=== PATIENT | female | born 1980 | race Hispanic/Latino ===

== ENCOUNTER 2021-10-20 17:09 | Inpatient (IN) | payer OTHER ==
[2021-10-20 18:27] LABS: Hematocrit 27.1 % (30.3-42.9); Hemoglobin 9.8 gm/dl (10.1-14.3); Mean Corpuscular HGB Conc 36 % (30-34); Mean Corpuscular Volume 88 fl (79-97); Platelet Count 158 K/mm3 (140-440); Red Blood Count 3.08 M/mm3 (3.65-5.03); Red Cell Distribution Width 14.9 % (13.2-15.2)
[2021-10-20 18:32] LABS: Bacteria,Urine 1+ /HPF (Negative); Bilirubin,Urine NEG (Negative); Blood,Urine NEG (Negative); Color,Urine Yellow (Yellow); Mucus,Urine FEW /HPF; Protein,Urine <15 mg/dL mg/dL (Negative); RBC,Urine < 1.0 /HPF (0.0-6.0); Urobilinogen,Urine < 2.0 mg/dL (<2.0)
[2021-10-20 18:48] LABS: Alanine Aminotransferase 12 units/L (7-56)
[2021-10-20 18:53] LABS: Creatinine,Urine 157.1 mg/dL (0.1-20.0); Protein/Creatinine Ratio,Urine 0.22
[2021-10-20] MEDS ORDERED: LOPERAMIDE 2 MG CAP PO PRN (20:03)
[2021-10-20] MEDS ORDERED: LIDOCAINE (2%) 20 MG/1 ML VIAL 20 ML MDV INFILTRATI ONE (20:03)
[2021-10-20] MEDS ORDERED: miSOPROStol 200 MCG TAB PR PRN (20:03)
[2021-10-20] MEDS ORDERED: TERBUTALINE 1 MG/1 ML INJ SUB-Q PRN (20:03)
[2021-10-20] MEDS ORDERED: ONDANSETRON 4 MG/2 ML INJ IV PRN (20:03)
[2021-10-20] MEDS ORDERED: OXYTOCIN 10 UNIT/1 ML INJ IM PRN (20:03)
[2021-10-20] MEDS ORDERED: NALOXONE 0.4 MG/1 ML INJ IV PRN (20:03)
[2021-10-20] MEDS ORDERED: fentaNYL 100 MCG/2 ML INJ IV PRN (20:03)
[2021-10-20] MEDS ORDERED: CARBOPROST TROMETHAMINE 250 MCG/1 ML INJ IM PRN (20:03)
[2021-10-20] MEDS ORDERED: PROMETHAZINE 25 MG TAB PO PRN (20:03)
[2021-10-20] MEDS ORDERED: ePHEDrine SULFATE 50 MG/1 ML INJ IV PRN (20:03)
[2021-10-20] MEDS ORDERED: ACETAMINOPHEN 325 MG TAB PO PRN (20:03)
[2021-10-20] MEDS ORDERED: MINERAL OIL 30 ML ORAL LIQD PO PRN (20:03)
[2021-10-20] MEDS ORDERED: BUTORPHANOL 2 MG/1 ML INJ IV PRN (20:03)
--- NOTE | 2021-10-20 20:11 | History and Physical Report ---
<ULISSES WELLINGTON - Last Filed: 10/21/21 00:09> History of Present Illness Date of examination: 10/20/21 Date of admission: 10/20/2021 Chief complaint: I was sent from the high risk doctors History of present illness: Pt is a 41 y.o. @ 37.1 wks, presented to triage after being sent from her [facility] appointment for a pre eclampsia evaluation. She has been seeing [facility] d/t AMA and on medications for ADHD. Her blood pressure at her [facility] visit today was 150's/90's. Also, at her [facility] appointment she was noted to have proteiunuria. Pt was to complete a 24 hr urine but did not turn it in as recommended. Initially upon admission to triage she told the RN that she had a CHANDLER, blurred vision, and some shortness of breath. Upon further questioning, she denied all symptoms. Her latest BPP and growth scan completed on 10/20 resulted vertex, CORRIE WNL, 26% (2803g, 6-3). EDC Confirmation: 11/09/2021 Gestational Age: 37.1 weeks on admission Past History : 4 Term Births: 3 Premature Births: 0 Living Children: 3 Para: 3 Mult. Births: 0 Prev : 0 Aborta: 0 Elect. Ab: 0 Spont. Ab: 0 Ectopics: 0 # 1 Delivery date: 1997 Weeks Gestation: 40 labor: no Delivery type: Anesthesia type: epidural Delivery location: [facility] Sex: Male weight: 6lbs 13oz Name: Ezequiel Comments: no complications # 2 Delivery date: 1998 Weeks Gestation: 40 labor: no Delivery type: Anesthesia type: epidural Delivery location: [facility] Infant Sex: Male weight: 7lbs 8oz Name: "Andrews" Comments: no complications # 3 Delivery date: 2002 Weeks Gestation: 40 labor: no Delivery type: Anesthesia type: none Delivery location: [facility] Infant Sex: Male weight: 8lbs 7oz Name: "Genaro" Past Medical History: Reviewed and updated today: Anemia ADHD Carpal tunnel syndrome- surgery scheduled 03/30/2021 Past Surgical History: Reviewed and updated today: negative Family History Summary: Reviewed history Last on 07/02/2020 and no changes required:03/16/2021 General Comments - FH: Family History of CVA or Stroke mother due to anuersym. Risk Factors: Smoked Tobacco Use: Never smoker Smokeless Tobacco Use: Never Passive Smoke Exposure: no HIV High Risk Behavior: no Caffeine Use: 1 drinks per day Exercise: no Exercise Counseling: yes Seatbelt Use: preg-health counselor % Sun Exposure: frequently Family History Risk Factors: Family History of IL in 1 Female Relative Age < 65: no Family History of IL in 1 Male Relative Age < 55: no No Dietary Counseling Reason: pn yes Alcohol Use: no Drug Use: no Past Medical History Anesthesia Complications: negative Anemia: positive Autoimmune Disorder: negative Bleeding Disorder: negative Blood Transfusions: negative Breast Disease: negative Diabetes: negative Heart Disease: negative Hypertension: negative Hepatitis/Liver Disease: negative Kidney Disease/UTI: negative Neurologic/Epilepsy/Migraines: negative Phlebitis/Varicosities: negative Psychiatric: positive Pulmonary Disease/Asthma: negative Thyroid Disease: negative Hospitalizations: negative Surgery (Non-art installer): negative Abnormal PAP: negative SKIP Exposure: negative Infertility: negative Uterine Anomaly: negative Uterine Surgery (not C/S): negative Other Gynecologic Problems: negative Social Hx: Patient is single logistic Infection History Hx of STD: none HIV Risk Eval: no Hepatitis B Risk Eval: low risk Personal hx. of genital herpes: yes Rash, Viral, or Febrile illness since last LMP? no Varicella/Chicken Pox Status: Previous Disease TB Risk: no Genetic History ADVANCED MATERNAL AGE Congenital Heart Defect: Mom: no Dad: no Liza Disease: Mom: no Dad: no Thalassemia Mom: no Dad: no Neural Tube Defect Mom: no Dad: no Down's Syndrome Mom: no Dad: no Masoud-Sachs Mom: no Dad: no Sickle Cell Disease/Trait Mom: no Dad: no Hemophilia Mom: no Dad: no Muscular Dystrophy Mom: no Dad: no Cystic Fibrosis Mom: no Dad: no Thee Chorea Mom: no Dad: no Mental Retardation Mom: no Dad: no Fragile X Mom: no Dad: no Other Genetic/Chromosomal Disorder Mom: no Dad: no Child w/other defect Mom: no Dad: no Enviromental Exposures Enviromental Exposures Reviewed Xray Exposure: no Medication, drug, or alcohol use since LMP: no Chemical/Other Exposure: no Exposure to Cat Liter: yes Hx of Parvovirus (Fifth Disease): no Occupational Exposure to Children: none Current Allergies (reviewed today): No known allergies Past History Past Medical History: hematologic disorders (Anemia), other (ADHA) Past Surgical History: other (Carpal tunnel surgery 2020) Family/Genetic History: hypertension, stroke Social history: no significant social history - Obstetrical History Expected Date of Delivery: 11/09/21 Actual Gestation: 37 Week(s) 2 Day(s) : 4 Para: 3 Hx # Term Pregnancies: 3 Number of Pregnancies: 0 Spontaneous Abortions: 0 Induced : 0 Number of Living Children: 3 Medications and Allergies Allergies Allergy/AdvReac Type Severity Reaction Status Date / Time No Known Allergies Allergy Verified 10/20/21 17:53 Active Meds: Active Medications Ephedrine Sulfate (Ephedrine Sulfate 50 Mg/1 Ml Inj) 10 mg IV Q2M PRN PRN Reason: Hypotension Lactated Ringer's (Lactated Ringers) 1,000 mls @ 125 mls/hr IV DIRECT ADALID Oxytocin/Sodium Chloride (Pitocin/Ns 30 Unit/500ml) 30 units in 500 mls @ 40 mls/hr IV TITR ADALID; Protocol Lidocaine (Lidocaine (2%) 20 Mg/1 Ml Vial 20 Ml Mdv) 20 ml INFILTRATI ONCE ONE Stop: 10/20/21 20:04 Mineral Oil (Mineral Oil 30 Ml Oral Liqd) 30 ml PO QHS PRN PRN Reason: Constipation Terbutaline Sulfate (Terbutaline 1 Mg/1 Ml Inj) 0.25 mg SUB-Q ONCE PRN PRN Reason: Hyperstimulation/Hypertonicity Review of Systems All systems: negative - Vital Signs Vital signs: Vital Signs Pulse Pulse Ox 71 96 10/20/21 17:51 10/20/21 17:51 Temp Pulse Resp BP Pulse Ox 98.2 F 71 20 138/87 97 10/20/21 17:52 10/20/21 19:45 10/20/21 17:52 10/20/21 19:45 10/20/21 18:11 Pt denies CHANDLER, blurred vision, spots before her eye, chest pain, shortness of breath, and upper abdominal pain. - Physical Exam Breasts: Positive: deferred Cardiovascular: Regular rate Lungs: Positive: Normal air movement Abdomen: Positive: normal appearance, soft Extremities: Positive: edema (Trace edema) Deep Tendon Reflex Grade: Normal +2 - Obstetrical FHR: category 1 Uterine Contraction Monitor Mode: External Uterine Contraction Pattern: Absent Results Result Diagrams: 10/20/21 Unknown 10/20/21 Unknown Abnormal lab results 10/20/21 10/20/21 Range/Units Unknown Unknown RBC 3.08 L (3.65-5.03) M/mm3 Hgb 9.8 L (10.1-14.3) gm/dl Hct 27.1 L (30.3-42.9) % MCHC 36 H (30-34) % Urine Creatinine 157.1 H (0.1-20.0) mg/dL Urine Total Protein 34 H (5-11.8) mg/dL All other labs normal. GBS NEGATIVE HBsAg Screen Negative Negative *1 RPR Non Reactive Non Reactive *2 Rubella Antibodies, IgG 4.52 index Immune >0.99 *3 Non-immune <0.90 Equivocal 0.90 - 0.99 Immune >0.99 ABO Grouping O *4 Rh Factor Positive *5 Please note: Prior records for this patient's ABO / Rh type are not available for additional verification. Antibody Screen Negative Negative *6 Tests: (2) HB Solu + Rflx [facility] ([id number]) Hemoglobin (Hgb) Solubility Negative Negative *31 Tests: (3) HIV Ag/Ab with Reflex ([id number]) HIV Screen 4th Generation wRfx Non Reactive Non Reactive *32 Tests: (4) HCV Antibody reflex to [facility] ([id number]) HCV Ab 0.3 s/co ratio 0.0-0.9 *33 Tests: (5) Interpretation: ([id number]) ! Interpretation: SPRCS *34 Negative Not infected with HCV, unless recent infection is suspected or other evidence exists to indicate HCV infection. Assessment and Plan A: 41 y.o. @ 37.1 wks, elevated blood pressures, anemia, ADHD, HSV2. - Patient Problems (1) 37 or more weeks gestation of Current Visit: Yes Status: Acute Plan to address problem: Monitor status through EFM. (2) Elevated blood pressure affecting , antepartum Current Visit: Yes Status: Acute Plan to address problem: Consulted with Dr. Rizvi. Admit to labor and delivery. Initiate IV. Draw admission and pre eclampsia labs. Initiate 24 hour urine. Continue to monitor blood pressures. Monitor for s/sx of pre eclampsia. (3) Hx of herpes genitalis Current Visit: Yes Status: Acute Plan to address problem: Valtrex ordered. (4) Anemia affecting in third trimester Current Visit: Yes Status: Acute Plan to address problem: with iron ordered. (5) History of ADHD Current Visit: Yes Status: Acute Plan to address problem: Will order psych this admission if needed. <GARRETT RIZVI - Last Filed: 10/22/21 10:38> History of Present Illness Date of admission: 10/20/21 20:04 Medications and Allergies Active Meds: Active Medications Acetaminophen (Acetaminophen 325 Mg Tab) 1,000 mg PO Q6H PRN PRN Reason: Pain, Mild (1-3) Butorphanol Tartrate (Butorphanol 2 Mg/1 Ml Inj) 1 mg IV Q2H PRN PRN Reason: Pain, Moderate(4-6) LABOR PAIN Carboprost Tromethamine (Carboprost Tromethamine 250 Mcg/1 Ml Inj) 250 mcg IM ONCE PRN PRN Reason: Uterine Bleeding Diphenhydramine HCl (Diphenhydramine 50 Mg Cap) 50 mg PO HS PRN PRN Reason: Sleep Last Admin: 10/21/21 22:28 Dose: 50 mg Ephedrine Sulfate (Ephedrine Sulfate 50 Mg/1 Ml Inj) 10 mg IV Q2M PRN PRN Reason: Hypotension Fentanyl (Fentanyl 100 Mcg/2 Ml Inj) 100 mcg IV Q2H PRN PRN Reason: Pain,Severe (7-10) LABOR PAIN Lactated Ringer's (Lactated Ringers) 1,000 mls @ 125 mls/hr IV DIRECT ADALID Last Admin: 10/22/21 10:30 Dose: 125 mls/hr Oxytocin/Sodium Chloride (Pitocin/Ns 30 Unit/500ml) 30 units in 500 mls @ 40 mls/hr IV TITR ADALID; Protocol Oxytocin/Sodium Chloride (Pitocin/Ns 30 Unit/500ml) 30,000 milliunits in 500 mls @ 1 mls/hr IV DIRECT ONE; Protocol Stop: 11/12/21 05:59 Last Admin: 10/22/21 10:35 Dose: 1 milliunits/min, 1 mls/hr Loperamide HCl (Loperamide 2 Mg Cap) 2 mg PO ONCE PRN PRN Reason: give with Hemabate Mineral Oil (Mineral Oil 30 Ml Oral Liqd) 30 ml PO QHS PRN PRN Reason: Constipation Misoprostol (Misoprostol 200 Mcg Tab) 800 mcg DC ONCE PRN PRN Reason: Uterine Bleeding Multivitamins/Iron/Calcium ( [id number] Fumarate-Folic Acid Vit Tab) 1 each PO QDAY [facility] Last Admin: 10/22/21 10:31 Dose: 1 each Naloxone HCl (Naloxone 0.4 Mg/1 Ml Inj) 0.1 mg IV Q2MIN PRN PRN Reason: Res Rate </= 8 or 02 SAT < 92% Ondansetron HCl (Ondansetron 4 Mg/2 Ml Inj) 4 mg IV Q8H PRN PRN Reason: Nausea And Vomiting Oxytocin (Oxytocin 10 Unit/1 Ml Inj) 10 unit IM ONCE PRN PRN Reason: Uterine Bleeding Promethazine HCl (Promethazine 25 Mg Tab) 25 mg PO Q6H PRN PRN Reason: Nausea And Vomiting Terbutaline Sulfate (Terbutaline 1 Mg/1 Ml Inj) 0.25 mg SUB-Q ONCE PRN PRN Reason: Hyperstimulation/Hypertonicity Valacyclovir HCl (Valacyclovir 500 Mg Tab) 1,000 mg PO QDAY [facility] Last Admin: 10/22/21 10:31 Dose: 1,000 mg - Vital Signs Vital signs: Vital Signs Pulse Pulse Ox 71 96 10/20/21 17:51 10/20/21 17:51 Temp Pulse Resp BP Pulse Ox 98.1 F 82 18 140/83 98 10/22/21 08:00 10/22/21 10:34 10/21/21 22:58 10/22/21 10:21 10/22/21 10:34 Results Result Diagrams: 10/20/21 Unknown 10/20/21 Unknown Abnormal lab results 10/20/21 Range/Units 21:17 Ur Total Protein 24 Hr 306.00 H (2-200) mg/dL Urine Total Protein 17 H (5-11.8) mg/dL All other labs normal.
[2021-10-20] MEDS ORDERED: LACTATED RINGERS 1,000 ML IV SCH (20:15)
[2021-10-20] MEDS ORDERED: OXYTOCIN DRIP 30 UNITS/500 ML BAG IV SCH (21:00)
[2021-10-20] MEDS: diphenhydrAMINE 50 MG CAP PO PRN (22:33)
[2021-10-20 22:55] LABS: Blood Urea Nitrogen 7 mg/dL (7-17); Calcium 8.8 mg/dL (8.4-10.2); Hemolysis Index 1
[2021-10-20 22:57] LABS: BUN/Creatinine Ratio 14
[2021-10-21] MEDS ORDERED: POTASSIUM CHLORIDE ER 20 MEQ TAB PO ONE (00:14)
--- NOTE | 2021-10-21 12:26 | Progress Note ---
Assessment and Plan Pt BP 162/87 while this CNM at bedside. Pt sitting in bed eating lunch and denies all complaints. BP retake 142/91. POC d/w pt. Questions encouraged and addressed. Discussed plan to continue monitoring BP and collecting 24hr urine. IOL discussed to start today if pt has severe range BP needing antihypertensive treatment. Pt verbalizes understanding and agrees to POC. Kristy PENA notified of CNM discussion with the pt and pt BP. POC discussed. RN requested to notify provider if any changes in ssx or increases in BP. RN agrees to POC. Dr Adam made aware. - Patient Problems (1) 37 or more weeks gestation of Current Visit: Yes Status: Acute (2) Elevated blood pressure affecting , antepartum Current Visit: Yes Status: Acute Plan to address problem: Continue 24 hour urine. Continue to monitor blood pressures. Monitor for s/sx of pre eclampsia. Notify provider with any elevated BPs or changes in pt status Subjective - Subjective Date of service: 10/21/21 Principal diagnosis: IUP@ 37.2wks, elevated blood pressure in , 24hr urine in progress Patient reports: movement normal, other (pt denies having any complaints), no new complaints, no loss of fluid, no vaginal bleeding, no contractions Objective - Vital Signs Vital Signs: Vital Signs - 12hr 10/21/21 10/21/21 10/21/21 00:30 00:31 00:35 Temperature Pulse Rate 70 99 H 70 Respiratory Rate Blood Pressure O2 Sat by Pulse 92 90 90 Oximetry O2 Sat by Pulse Oximetry [ Bilateral Throughout] 10/21/21 10/21/21 10/21/21 00:36 00:40 00:41 Temperature Pulse Rate 78 72 74 Respiratory Rate Blood Pressure O2 Sat by Pulse 92 96 93 Oximetry O2 Sat by Pulse Oximetry [ Bilateral Throughout] 10/21/21 10/21/21 10/21/21 00:45 00:46 00:50 Temperature Pulse Rate 69 87 79 Respiratory Rate Blood Pressure O2 Sat by Pulse 95 90 89 Oximetry O2 Sat by Pulse Oximetry [ Bilateral Throughout] 10/21/21 10/21/21 10/21/21 00:52 00:55 00:57 Temperature Pulse Rate 84 78 89 Respiratory Rate Blood Pressure O2 Sat by Pulse 92 91 92 Oximetry O2 Sat by Pulse Oximetry [ Bilateral Throughout] 10/21/21 10/21/2110/21/22 01:00 01:02 01:05 Temperature Pulse Rate 68 77 74 Respiratory Rate Blood Pressure O2 Sat by Pulse 90 91 99 Oximetry O2 Sat by Pulse Oximetry [ Bilateral Throughout] 10/21/21 10/21/21 10/21/21 01:13 01:18 01:22 Temperature Pulse Rate 73 69 62 Respiratory Rate Blood Pressure 136/78 O2 Sat by Pulse 99 95 Oximetry O2 Sat by Pulse Oximetry [ Bilateral Throughout] 10/21/21 10/21/21 10/21/21 01:23 01:28 01:32 Temperature Pulse Rate 65 66 75 Respiratory Rate Blood Pressure O2 Sat by Pulse 95 97 91 Oximetry O2 Sat by Pulse Oximetry [ Bilateral Throughout] 10/21/21 10/21/21 10/21/21 01:33 01:37 01:38 Temperature Pulse Rate 60 84 63 Respiratory Rate Blood Pressure O2 Sat by Pulse 86 89 96 Oximetry O2 Sat by Pulse Oximetry [ Bilateral Throughout] 10/21/21 10/21/21 10/21/21 01:42 01:43 01:48 Temperature Pulse Rate 86 64 65 Respiratory Rate Blood Pressure O2 Sat by Pulse 90 97 87 Oximetry O2 Sat by Pulse Oximetry [ Bilateral Throughout] 10/21/21 10/21/21 10/21/21 01:53 01:58 01:59 Temperature Pulse Rate 89 68 69 Respiratory Rate Blood Pressure O2 Sat by Pulse 83 L 92 87 Oximetry O2 Sat by Pulse Oximetry [ Bilateral Throughout] 10/21/21 10/21/21 10/21/21 02:03 02:04 02:08 Temperature Pulse Rate 66 66 69 Respiratory Rate Blood Pressure O2 Sat by Pulse 97 89 71 L Oximetry O2 Sat by Pulse Oximetry [ Bilateral Throughout] 10/21/21 10/21/21 10/21/21 02:09 02:13 02:14 Temperature Pulse Rate 83 71 71 Respiratory Rate Blood Pressure O2 Sat by Pulse 87 92 92 Oximetry O2 Sat by Pulse Oximetry [ Bilateral Throughout] 10/21/21 10/21/21 10/21/21 02:18 02:19 02:21 Temperature Pulse Rate 75 76 78 Respiratory Rate Blood Pressure 136/78 O2 Sat by Pulse 93 89 Oximetry O2 Sat by Pulse Oximetry [ Bilateral Throughout] 10/21/21 10/21/21 10/21/21 02:23 02:25 02:28 Temperature Pulse Rate 74 76 79 Respiratory Rate Blood Pressure O2 Sat by Pulse 89 88 90 Oximetry O2 Sat by Pulse Oximetry [ Bilateral Throughout] 10/21/21 10/21/21 10/21/21 02:30 02:33 02:35 Temperature Pulse Rate 74 61 75 Respiratory Rate Blood Pressure O2 Sat by Pulse 89 87 90 Oximetry O2 Sat by Pulse Oximetry [ Bilateral Throughout] 10/21/21 10/21/21 10/21/21 02:38 02:40 02:43 Temperature Pulse Rate 61 76 72 Respiratory Rate Blood Pressure O2 Sat by Pulse 98 89 84 Oximetry O2 Sat by Pulse Oximetry [ Bilateral Throughout] 10/21/21 10/21/21 10/21/21 02:46 02:48 02:51 Temperature Pulse Rate 75 74 69 Respiratory Rate Blood Pressure O2 Sat by Pulse 89 87 90 Oximetry O2 Sat by Pulse Oximetry [ Bilateral Throughout] 10/21/21 10/21/21 10/21/21 02:54 02:56 02:59 Temperature Pulse Rate 66 78 78 Respiratory Rate Blood Pressure O2 Sat by Pulse 95 87 89 Oximetry O2 Sat by Pulse Oximetry [ Bilateral Throughout] 10/21/21 10/21/21 10/21/21 03:02 03:04 03:07 Temperature Pulse Rate 78 72 72 Respiratory Rate Blood Pressure O2 Sat by Pulse 90 96 90 Oximetry O2 Sat by Pulse Oximetry [ Bilateral Throughout] 10/21/21 10/21/21 10/21/21 03:09 03:12 03:14 Temperature Pulse Rate 66 81 69 Respiratory Rate Blood Pressure O2 Sat by Pulse 96 89 96 Oximetry O2 Sat by Pulse Oximetry [ Bilateral Throughout] 10/21/21 10/21/21 10/21/21 03:18 03:19 03:22 Temperature Pulse Rate 80 63 73 Respiratory Rate Blood Pressure 141/86 O2 Sat by Pulse 90 87 Oximetry O2 Sat by Pulse Oximetry [ Bilateral Throughout] 10/21/21 10/21/21 10/21/21 03:23 03:24 03:29 Temperature Pulse Rate 80 65 70 Respiratory Rate Blood Pressure O2 Sat by Pulse 91 97 84 Oximetry O2 Sat by Pulse Oximetry [ Bilateral Throughout] 10/21/21 10/21/21 10/21/21 03:34 03:39 03:40 Temperature Pulse Rate 64 68 72 Respiratory Rate Blood Pressure O2 Sat by Pulse 98 97 93 Oximetry O2 Sat by Pulse Oximetry [ Bilateral Throughout] 10/21/21 10/21/21 10/21/21 03:44 03:45 03:49 Temperature Pulse Rate 64 78 78 Respiratory Rate Blood Pressure O2 Sat by Pulse 94 90 90 Oximetry O2 Sat by Pulse Oximetry [ Bilateral Throughout] 10/21/21 10/21/21 10/21/21 03:51 03:54 03:56 Temperature Pulse Rate 73 72 81 Respiratory Rate Blood Pressure O2 Sat by Pulse 89 86 89 Oximetry O2 Sat by Pulse Oximetry [ Bilateral Throughout] 10/21/21 10/21/21 10/21/21 03:59 04:01 04:04 Temperature Pulse Rate 76 79 78 Respiratory Rate Blood Pressure O2 Sat by Pulse 92 89 96 Oximetry O2 Sat by Pulse Oximetry [ Bilateral Throughout] 10/21/21 10/21/21 10/21/21 04:07 04:09 04:13 Temperature Pulse Rate 74 71 82 Respiratory Rate Blood Pressure O2 Sat by Pulse 94 96 92 Oximetry O2 Sat by Pulse Oximetry [ Bilateral Throughout] 10/21/21 10/21/21 10/21/21 04:14 04:19 04:21 Temperature Pulse Rate 70 69 68 Respiratory Rate Blood Pressure 124/75 O2 Sat by Pulse 95 98 Oximetry O2 Sat by Pulse Oximetry [ Bilateral Throughout] 10/21/21 10/21/21 10/21/21 04:23 04:24 04:29 Temperature Pulse Rate 71 75 78 Respiratory Rate Blood Pressure O2 Sat by Pulse 94 94 97 Oximetry O2 Sat by Pulse Oximetry [ Bilateral Throughout] 10/21/21 10/21/21 10/21/21 04:34 04:35 04:39 Temperature Pulse Rate 77 77 69 Respiratory Rate Blood Pressure O2 Sat by Pulse 95 94 95 Oximetry O2 Sat by Pulse Oximetry [ Bilateral Throughout] 10/21/21 10/21/21 10/21/21 04:41 04:44 04:46 Temperature Pulse Rate 77 69 74 Respiratory Rate Blood Pressure O2 Sat by Pulse 94 95 94 Oximetry O2 Sat by Pulse Oximetry [ Bilateral Throughout] 10/21/21 10/21/21 10/21/21 04:49 04:54 04:55 Temperature Pulse Rate 74 78 76 Respiratory Rate Blood Pressure O2 Sat by Pulse 94 97 94 Oximetry O2 Sat by Pulse Oximetry [ Bilateral Throughout] 10/21/21 10/21/21 10/21/21 04:59 05:04 05:09 Temperature Pulse Rate 69 70 69 Respiratory Rate Blood Pressure O2 Sat by Pulse 97 96 96 Oximetry O2 Sat by Pulse Oximetry [ Bilateral Throughout] 10/21/21 10/21/21 10/21/21 05:14 05:16 05:19 Temperature Pulse Rate 71 68 71 Respiratory Rate Blood Pressure O2 Sat by Pulse 96 93 97 Oximetry O2 Sat by Pulse Oximetry [ Bilateral Throughout] 10/21/21 10/21/21 10/21/21 05:21 05:24 05:28 Temperature Pulse Rate 73 69 70 Respiratory Rate Blood Pressure 140/68 O2 Sat by Pulse 95 93 Oximetry O2 Sat by Pulse Oximetry [ Bilateral Throughout] 10/21/21 10/21/21 10/21/21 05:29 05:33 05:34 Temperature Pulse Rate 60 69 69 Respiratory Rate Blood Pressure O2 Sat by Pulse 95 93 97 Oximetry O2 Sat by Pulse Oximetry [ Bilateral Throughout] 10/21/21 10/21/21 10/21/21 05:38 05:39 05:43 Temperature Pulse Rate 61 64 67 Respiratory Rate Blood Pressure O2 Sat by Pulse 93 97 93 Oximetry O2 Sat by Pulse Oximetry [ Bilateral Throughout] 10/21/21 10/21/21 10/21/21 05:44 05:49 05:54 Temperature Pulse Rate 60 67 64 Respiratory Rate Blood Pressure O2 Sat by Pulse 95 96 96 Oximetry O2 Sat by Pulse Oximetry [ Bilateral Throughout] 10/21/21 10/21/21 10/21/21 05:59 06:04 06:09 Temperature Pulse Rate 68 74 67 Respiratory Rate Blood Pressure O2 Sat by Pulse 96 94 93 Oximetry O2 Sat by Pulse Oximetry [ Bilateral Throughout] 10/21/21 10/21/21 10/21/21 06:14 06:19 06:22 Temperature Pulse Rate 66 74 70 Respiratory Rate Blood Pressure 127/62 O2 Sat by Pulse 96 94 Oximetry O2 Sat by Pulse Oximetry [ Bilateral Throughout] 10/21/21 10/21/21 10/21/21 06:24 06:26 06:29 Temperature Pulse Rate 68 68 66 Respiratory Rate Blood Pressure O2 Sat by Pulse 93 92 97 Oximetry O2 Sat by Pulse Oximetry [ Bilateral Throughout] 10/21/21 10/21/21 10/21/21 06:32 06:34 06:37 Temperature Pulse Rate 67 74 71 Respiratory Rate Blood Pressure O2 Sat by Pulse 94 93 93 Oximetry O2 Sat by Pulse Oximetry [ Bilateral Throughout] 10/21/21 10/21/21 10/21/21 06:39 06:44 06:56 Temperature Pulse Rate 69 76 77 Respiratory Rate Blood Pressure O2 Sat by Pulse 97 97 97 Oximetry O2 Sat by Pulse Oximetry [ Bilateral Throughout] 10/21/21 10/21/21 10/21/21 07:01 07:06 07:11 Temperature Pulse Rate 75 68 69 Respiratory Rate Blood Pressure O2 Sat by Pulse 97 97 98 Oximetry O2 Sat by Pulse Oximetry [ Bilateral Throughout] 10/21/21 10/21/21 10/21/21 07:16 07:21 07:26 Temperature Pulse Rate 76 77 67 Respiratory Rate Blood Pressure 139/82 O2 Sat by Pulse 98 98 99 Oximetry O2 Sat by Pulse Oximetry [ Bilateral Throughout] 10/21/21 10/21/21 10/21/21 07:31 07:36 07:41 Temperature Pulse Rate 94 H 90 79 Respiratory Rate Blood Pressure O2 Sat by Pulse 97 99 99 Oximetry O2 Sat by Pulse Oximetry [ Bilateral Throughout] 10/21/21 10/21/21 10/21/21 07:46 07:51 07:56 Temperature Pulse Rate 69 71 73 Respiratory Rate Blood Pressure O2 Sat by Pulse 98 98 97 Oximetry O2 Sat by Pulse Oximetry [ Bilateral Throughout] 10/21/21 10/21/21 10/21/21 08:01 08:05 08:06 Temperature 98.7 F Pulse Rate 72 82 Respiratory 18 Rate Blood Pressure O2 Sat by Pulse 97 93 Oximetry O2 Sat by Pulse 98 Oximetry [ Bilateral Throughout] 10/21/21 10/21/21 10/21/21 08:11 08:16 08:21 Temperature Pulse Rate 76 77 73 Respiratory Rate Blood Pressure 126/76 O2 Sat by Pulse 98 98 97 Oximetry O2 Sat by Pulse Oximetry [ Bilateral Throughout] 10/21/21 10/21/21 10/21/21 08:26 08:31 08:36 Temperature Pulse Rate 74 74 75 Respiratory Rate Blood Pressure O2 Sat by Pulse 96 97 97 Oximetry O2 Sat by Pulse Oximetry [ Bilateral Throughout] 10/21/21 10/21/21 10/21/21 08:41 08:46 08:47 Temperature Pulse Rate 79 88 77 Respiratory Rate Blood Pressure O2 Sat by Pulse 97 98 94 Oximetry O2 Sat by Pulse Oximetry [ Bilateral Throughout] 10/21/21 10/21/21 10/21/21 08:51 08:56 09:01 Temperature Pulse Rate 79 76 75 Respiratory Rate Blood Pressure O2 Sat by Pulse 97 96 95 Oximetry O2 Sat by Pulse Oximetry [ Bilateral Throughout] 10/21/21 10/21/21 10/21/21 09:06 09:07 09:11 Temperature Pulse Rate 75 76 89 Respiratory Rate Blood Pressure O2 Sat by Pulse 97 93 87 Oximetry O2 Sat by Pulse Oximetry [ Bilateral Throughout] 10/21/21 10/21/21 10/21/21 09:12 09:16 09:18 Temperature Pulse Rate 81 80 79 Respiratory Rate Blood Pressure O2 Sat by Pulse 90 93 89 Oximetry O2 Sat by Pulse Oximetry [ Bilateral Throughout] 10/21/21 10/21/21 10/21/21 09:21 09:23 09:26 Temperature Pulse Rate 76 77 74 Respiratory Rate Blood Pressure 138/77 O2 Sat by Pulse 92 92 96 Oximetry O2 Sat by Pulse Oximetry [ Bilateral Throughout] 10/21/21 10/21/21 10/21/21 09:29 09:31 09:36 Temperature Pulse Rate 77 75 77 Respiratory Rate Blood Pressure O2 Sat by Pulse 92 97 94 Oximetry O2 Sat by Pulse Oximetry [ Bilateral Throughout] 10/21/21 10/21/21 10/21/21 09:51 09:54 09:56 Temperature Pulse Rate 85 88 82 Respiratory Rate Blood Pressure O2 Sat by Pulse 99 94 97 Oximetry O2 Sat by Pulse Oximetry [ Bilateral Throughout] 10/21/21 10/21/21 10/21/21 10:01 10:06 10:09 Temperature Pulse Rate 79 83 78 Respiratory Rate Blood Pressure O2 Sat by Pulse 96 95 94 Oximetry O2 Sat by Pulse Oximetry [ Bilateral Throughout] 10/21/21 10/21/21 10/21/21 10:11 10:16 10:19 Temperature Pulse Rate 77 78 77 Respiratory Rate Blood Pressure O2 Sat by Pulse 96 97 94 Oximetry O2 Sat by Pulse Oximetry [ Bilateral Throughout] 10/21/21 10/21/21 10/21/21 10:21 10:26 10:29 Temperature Pulse Rate 85 78 78 Respiratory Rate Blood Pressure 122/75 O2 Sat by Pulse 95 96 94 Oximetry O2 Sat by Pulse Oximetry [ Bilateral Throughout] 10/21/21 10/21/2122 10:31 10:36 10:41 Temperature Pulse Rate 77 70 83 Respiratory Rate Blood Pressure O2 Sat by Pulse 96 97 96 Oximetry O2 Sat by Pulse Oximetry [ Bilateral Throughout] 10/21/21 10/21/21 10/21/21 10:46 10:51 11:02 Temperature Pulse Rate 74 80 79 Respiratory Rate Blood Pressure O2 Sat by Pulse 98 97 98 Oximetry O2 Sat by Pulse Oximetry [ Bilateral Throughout] 10/21/21 10/21/21 10/21/21 11:07 11:12 11:17 Temperature Pulse Rate 77 77 78 Respiratory Rate Blood Pressure O2 Sat by Pulse 98 98 98 Oximetry O2 Sat by Pulse Oximetry [ Bilateral Throughout] 10/21/21 10/21/21 10/21/21 11:22 11:23 11:27 Temperature Pulse Rate 82 78 79 Respiratory Rate Blood Pressure 166/103 O2 Sat by Pulse 98 98 Oximetry O2 Sat by Pulse Oximetry [ Bilateral Throughout] 10/21/21 10/21/21 10/21/21 11:32 11:37 11:42 Temperature Pulse Rate 89 90 83 Respiratory Rate Blood Pressure O2 Sat by Pulse 98 98 99 Oximetry O2 Sat by Pulse Oximetry [ Bilateral Throughout] 10/21/21 10/21/21 10/21/21 11:47 11:49 11:52 Temperature Pulse Rate 87 76 81 Respiratory Rate Blood Pressure 162/87 149/91 O2 Sat by Pulse 97 97 Oximetry O2 Sat by Pulse Oximetry [ Bilateral Throughout] 10/21/21 10/21/21 10/21/21 11:57 12:05 12:10 Temperature Pulse Rate 90 76 78 Respiratory Rate Blood Pressure O2 Sat by Pulse 98 100 99 Oximetry O2 Sat by Pulse Oximetry [ Bilateral Throughout] 10/21/21 10/21/21 10/21/21 12:15 12:20 12:21 Temperature Pulse Rate 83 71 74 Respiratory Rate Blood Pressure 131/84 O2 Sat by Pulse 98 97 Oximetry O2 Sat by Pulse Oximetry [ Bilateral Throughout] - Exam Breasts: deferred Cardiovascular: Regular rate Lungs: Normal air movement Abdomen: Present: normal appearance, soft. Absent: distention, tenderness, guarding Uterus: Present: normal, other (gravid at term) FHR: auscultation normal, category 1 Uterine Contraction Monitor Mode: External Uterine Contraction Pattern: Irregular Uterine Tone Measurement Phase: Resting Extremities: normal - Labs Labs: Abnormal Labs 10/20/21 10/20/21 10/20/21 22:23 Unknown Unknown RBC 3.08 L Hgb 9.8 L Hct 27.1 L MCHC 36 H Potassium 3.1 L Creatinine 0.5 L Urine Creatinine 157.1 H Urine Total Protein 34 H Laboratory Results - last 24 hr 10/20/21 10/20/21 10/20/21 20:20 20:20 22:23 WBC RBC Hgb Hct MCV MCH MCHC RDW Plt Count Sodium 139 Potassium 3.1 L Chloride 103.6 Carbon Dioxide 25 Anion Gap 14 BUN 7 Creatinine 0.5 L Estimated GFR > 60 BUN/Creatinine Ratio 14 Glucose 91 Uric Acid Calcium 8.8 AST ALT Lactate Dehydrogenase Urine Color Urine Turbidity Urine pH Ur Specific [place] Urine Protein Urine Glucose (UA) Urine Ketones Urine Blood Urine Nitrite Urine Bilirubin Urine Urobilinogen Ur Leukocyte Esterase Urine WBC (Auto) Urine RBC (Auto) U Epithel Cells (Auto) Urine Bacteria (Auto) Urine Mucus Urine Creatinine Protein/Creatinin Ratio Urine Total Protein Syphilis IgG/IgM Ab Nonreactive SARS-CoV-2 (PCR) Blood Type O POSITIVE Antibody Screen Negative 10/20/21 10/20/21 10/20/21 Unknown Unknown Unknown WBC 8.4 RBC 3.08 L Hgb 9.8 L Hct 27.1 L MCV 88 MCH 32 MCHC 36 H RDW 14.9 Plt Count 158 Sodium Potassium Chloride Carbon Dioxide Anion Gap BUN Creatinine 0.6 Estimated GFR > 60 BUN/Creatinine Ratio Glucose Uric Acid 4.0 Calcium AST 15 ALT 12 Lactate Dehydrogenase 172 Urine Color Yellow Urine Turbidity Clear Urine pH 7.0 Ur Specific [place] 1.015 Urine Protein <15 mg/dl Urine Glucose (UA) Neg Urine Ketones Neg Urine Blood Neg Urine Nitrite Neg Urine Bilirubin Neg Urine Urobilinogen < 2.0 Ur Leukocyte Esterase Neg Urine WBC (Auto) 3.0 Urine RBC (Auto) < 1.0 U Epithel Cells (Auto) 6.0 Urine Bacteria (Auto) 1+ Urine Mucus Few Urine Creatinine Protein/Creatinin Ratio Urine Total Protein Syphilis IgG/IgM Ab SARS-CoV-2 (PCR) Blood Type Antibody Screen 10/20/21 10/21/21 Unknown 09:32 WBC RBC Hgb Hct MCV MCH MCHC RDW Plt Count Sodium Potassium Chloride Carbon Dioxide Anion Gap BUN Creatinine Estimated GFR BUN/Creatinine Ratio Glucose Uric Acid Calcium AST ALT Lactate Dehydrogenase Urine Color Urine Turbidity Urine pH Ur Specific [place] Urine Protein Urine Glucose (UA) Urine Ketones Urine Blood Urine Nitrite Urine Bilirubin Urine Urobilinogen Ur Leukocyte Esterase Urine WBC (Auto) Urine RBC (Auto) U Epithel Cells (Auto) Urine Bacteria (Auto) Urine Mucus Urine Creatinine 157.1 H Protein/Creatinin Ratio 0.22 Urine Total Protein 34 H Syphilis IgG/IgM Ab SARS-CoV-2 (PCR) Negative Blood Type Antibody Screen
[2021-10-21] MEDS: diphenhydrAMINE 50 MG CAP PO PRN (22:28)
--- NOTE | 2021-10-22 09:17 | Progress Note ---
Assessment and Plan Pt denies having any complaints. Lab results d/w pt. Risks in with preeclampsia discussed, including but not limited to seizure, stroke, heart attack, and . POC d/w pt. Seriol IOL options reviewed. Pt told induction may take days. Questions encouraged and addressed. Precautions reviewed. Plan discussed to start Magnesium Sulfate if pt has severe range BP needing antihypertensive treatment. Pt verbalizes understanding and agrees to POC. Susanne PENA at bedside for discussion and exam. RN agrees to POC. Pitocin to start now. Dr Jackson made aware. - Patient Problems (1) 37 or more weeks gestation of Current Visit: Yes Status: Acute (2) Elevated blood pressure affecting , antepartum Current Visit: Yes Status: Acute Plan to address problem: Continue to monitor blood pressures. Monitor for s/sx of worsening pre eclampsia. Notify provider with any elevated BPs or changes in pt status Subjective - Subjective Date of service: 10/22/21 Principal diagnosis: IUP@ 37.3wks, Preeclampsia Patient reports: movement normal, other (pt denies having any complaints), no new complaints, no loss of fluid, no vaginal bleeding, no contractions Objective - Vital Signs Vital Signs: Vital Signs - 12hr 10/21/21 10/21/21 10/21/21 21:21 21:23 21:26 Temperature Pulse Rate 79 75 72 Respiratory Rate Blood Pressure 146/84 O2 Sat by Pulse 99 99 Oximetry O2 Sat by Pulse Oximetry [ Bilateral Throughout] 10/21/21 10/21/21 10/21/21 21:38 21:43 21:48 Temperature Pulse Rate 79 71 72 Respiratory Rate Blood Pressure O2 Sat by Pulse 95 99 99 Oximetry O2 Sat by Pulse Oximetry [ Bilateral Throughout] 10/21/21 10/21/21 10/21/21 21:53 21:58 22:04 Temperature Pulse Rate 78 79 31 L Respiratory Rate Blood Pressure O2 Sat by Pulse 98 99 100 Oximetry O2 Sat by Pulse Oximetry [ Bilateral Throughout] 10/21/21 10/21/21 10/21/21 22:09 22:14 22:19 Temperature Pulse Rate 67 63 65 Respiratory Rate Blood Pressure O2 Sat by Pulse 98 99 96 Oximetry O2 Sat by Pulse Oximetry [ Bilateral Throughout] 10/21/21 10/21/21 10/21/21 22:21 22:24 22:29 Temperature Pulse Rate 62 80 65 Respiratory Rate Blood Pressure 133/80 O2 Sat by Pulse 99 99 Oximetry O2 Sat by Pulse Oximetry [ Bilateral Throughout] 10/21/21 10/21/21 10/21/21 22:34 22:39 22:44 Temperature Pulse Rate 67 71 71 Respiratory Rate Blood Pressure O2 Sat by Pulse 98 98 99 Oximetry O2 Sat by Pulse Oximetry [ Bilateral Throughout] 10/21/21 10/21/21 10/21/21 22:49 22:54 22:57 Temperature Pulse Rate 68 67 74 Respiratory Rate Blood Pressure O2 Sat by Pulse 97 99 93 Oximetry O2 Sat by Pulse 98 Oximetry [ Bilateral Throughout] 10/21/21 10/21/21 10/21/21 22:58 22:59 23:04 Temperature 98.5 F Pulse Rate 86 68 Respiratory 18 Rate Blood Pressure O2 Sat by Pulse 93 97 Oximetry O2 Sat by Pulse Oximetry [ Bilateral Throughout] 10/21/21 10/21/21 10/21/21 23:05 23:09 23:11 Temperature Pulse Rate 88 64 68 Respiratory Rate Blood Pressure O2 Sat by Pulse 90 90 88 Oximetry O2 Sat by Pulse Oximetry [ Bilateral Throughout] 10/21/21 10/21/21 10/21/21 23:14 23:16 23:19 Temperature Pulse Rate 86 70 70 Respiratory Rate Blood Pressure O2 Sat by Pulse 94 94 94 Oximetry O2 Sat by Pulse Oximetry [ Bilateral Throughout] 10/21/21 10/21/21 10/21/21 23:22 23:23 23:24 Temperature Pulse Rate 68 67 84 Respiratory Rate Blood Pressure 137/70 O2 Sat by Pulse 90 86 Oximetry O2 Sat by Pulse Oximetry [ Bilateral Throughout] 10/21/21 10/21/21 10/21/21 23:27 23:29 23:33 Temperature Pulse Rate 85 68 79 Respiratory Rate Blood Pressure O2 Sat by Pulse 91 84 90 Oximetry O2 Sat by Pulse Oximetry [ Bilateral Throughout] 10/21/21 10/21/21 10/21/21 23:34 23:38 23:39 Temperature Pulse Rate 94 H 90 71 Respiratory Rate Blood Pressure O2 Sat by Pulse 95 90 88 Oximetry O2 Sat by Pulse Oximetry [ Bilateral Throughout] 10/21/21 10/21/21 10/21/21 23:43 23:44 23:49 Temperature Pulse Rate 73 83 66 Respiratory Rate Blood Pressure O2 Sat by Pulse 91 95 94 Oximetry O2 Sat by Pulse Oximetry [ Bilateral Throughout] 10/21/21 10/21/21 10/22/21 23:54 23:59 00:04 Temperature Pulse Rate 67 92 H 68 Respiratory Rate Blood Pressure O2 Sat by Pulse 87 91 91 Oximetry O2 Sat by Pulse Oximetry [ Bilateral Throughout] 10/22/21 10/22/21 10/22/21 00:05 00:09 00:14 Temperature Pulse Rate 81 74 94 H Respiratory Rate Blood Pressure O2 Sat by Pulse 91 96 98 Oximetry O2 Sat by Pulse Oximetry [ Bilateral Throughout] 10/22/21 10/22/21 10/22/21 00:19 00:21 00:24 Temperature Pulse Rate 74 74 74 Respiratory Rate Blood Pressure 118/79 O2 Sat by Pulse 96 97 Oximetry O2 Sat by Pulse Oximetry [ Bilateral Throughout] 10/22/21 10/22/21 10/22/21 00:29 00:34 00:35 Temperature Pulse Rate 74 62 69 Respiratory Rate Blood Pressure O2 Sat by Pulse 95 98 94 Oximetry O2 Sat by Pulse Oximetry [ Bilateral Throughout] 10/22/21 10/22/21 10/22/21 00:39 00:41 00:44 Temperature Pulse Rate 72 84 86 Respiratory Rate Blood Pressure O2 Sat by Pulse 97 93 93 Oximetry O2 Sat by Pulse Oximetry [ Bilateral Throughout] 10/22/21 10/22/21 10/22/21 00:46 00:49 00:51 Temperature Pulse Rate 67 70 89 Respiratory Rate Blood Pressure O2 Sat by Pulse 94 92 93 Oximetry O2 Sat by Pulse Oximetry [ Bilateral Throughout] 10/22/21 10/22/21 10/22/21 00:54 00:58 00:59 Temperature Pulse Rate 76 72 77 Respiratory Rate Blood Pressure O2 Sat by Pulse 96 94 96 Oximetry O2 Sat by Pulse Oximetry [ Bilateral Throughout] 10/22/21 10/22/21 10/22/21 01:04 01:09 01:14 Temperature Pulse Rate 66 71 70 Respiratory Rate Blood Pressure O2 Sat by Pulse 90 95 89 Oximetry O2 Sat by Pulse Oximetry [ Bilateral Throughout] 10/22/21 10/22/21 10/22/21 01:19 01:20 01:22 Temperature Pulse Rate 69 77 67 Respiratory Rate Blood Pressure 127/74 O2 Sat by Pulse 97 92 Oximetry O2 Sat by Pulse Oximetry [ Bilateral Throughout] 10/22/21 10/22/21 10/22/21 01:24 01:25 01:29 Temperature Pulse Rate 67 72 69 Respiratory Rate Blood Pressure O2 Sat by Pulse 92 92 97 Oximetry O2 Sat by Pulse Oximetry [ Bilateral Throughout] 10/22/21 10/22/21 10/22/21 01:30 01:34 01:36 Temperature Pulse Rate 84 70 77 Respiratory Rate Blood Pressure O2 Sat by Pulse 90 96 87 Oximetry O2 Sat by Pulse Oximetry [ Bilateral Throughout] 10/22/21 10/22/21 10/22/21 01:39 01:41 01:44 Temperature Pulse Rate 74 87 77 Respiratory Rate Blood Pressure O2 Sat by Pulse 90 90 79 L Oximetry O2 Sat by Pulse Oximetry [ Bilateral Throughout] 10/22/21 10/22/21 10/22/21 01:46 01:49 01:51 Temperature Pulse Rate 58 L 81 90 Respiratory Rate Blood Pressure O2 Sat by Pulse 88 81 L 89 Oximetry O2 Sat by Pulse Oximetry [ Bilateral Throughout] 10/22/21 10/22/21 10/22/21 01:54 01:57 01:59 Temperature Pulse Rate 66 76 60 Respiratory Rate Blood Pressure O2 Sat by Pulse 95 88 99 Oximetry O2 Sat by Pulse Oximetry [ Bilateral Throughout] 10/22/21 10/22/21 10/22/21 02:02 02:04 02:08 Temperature Pulse Rate 73 74 71 Respiratory Rate Blood Pressure O2 Sat by Pulse 91 96 92 Oximetry O2 Sat by Pulse Oximetry [ Bilateral Throughout] 10/22/21 10/22/21 10/22/21 02:09 02:14 02:19 Temperature Pulse Rate 64 63 63 Respiratory Rate Blood Pressure O2 Sat by Pulse 93 94 97 Oximetry O2 Sat by Pulse Oximetry [ Bilateral Throughout] 10/22/21 10/22/21 10/22/21 02:24 02:25 02:29 Temperature Pulse Rate 70 78 71 Respiratory Rate Blood Pressure O2 Sat by Pulse 95 93 95 Oximetry O2 Sat by Pulse Oximetry [ Bilateral Throughout] 10/22/21 10/22/21 10/22/21 02:30 02:34 02:35 Temperature Pulse Rate 65 83 77 Respiratory Rate Blood Pressure O2 Sat by Pulse 92 93 92 Oximetry O2 Sat by Pulse Oximetry [ Bilateral Throughout] 10/22/21 10/22/21 10/22/21 02:39 02:40 02:44 Temperature Pulse Rate 70 64 72 Respiratory Rate Blood Pressure O2 Sat by Pulse 92 91 95 Oximetry O2 Sat by Pulse Oximetry [ Bilateral Throughout] 10/22/21 10/22/21 10/22/21 02:49 02:54 02:55 Temperature Pulse Rate 69 79 86 Respiratory Rate Blood Pressure O2 Sat by Pulse 98 94 93 Oximetry O2 Sat by Pulse Oximetry [ Bilateral Throughout] 10/22/21 10/22/21 10/22/21 02:59 03:00 03:04 Temperature Pulse Rate 69 68 68 Respiratory Rate Blood Pressure O2 Sat by Pulse 97 93 97 Oximetry O2 Sat by Pulse Oximetry [ Bilateral Throughout] 10/22/21 10/22/21 10/22/21 03:06 03:09 03:12 Temperature Pulse Rate 68 66 66 Respiratory Rate Blood Pressure O2 Sat by Pulse 94 98 93 Oximetry O2 Sat by Pulse Oximetry [ Bilateral Throughout] 10/22/21 10/22/21 10/22/21 03:14 03:19 03:21 Temperature Pulse Rate 80 71 71 Respiratory Rate Blood Pressure O2 Sat by Pulse 95 98 94 Oximetry O2 Sat by Pulse Oximetry [ Bilateral Throughout] 10/22/21 10/22/21 10/22/21 03:22 03:24 03:26 Temperature Pulse Rate 72 68 73 Respiratory Rate Blood Pressure 138/95 O2 Sat by Pulse 97 94 Oximetry O2 Sat by Pulse Oximetry [ Bilateral Throughout] 10/22/21 10/22/21 10/22/21 03:29 03:31 03:34 Temperature Pulse Rate 79 66 69 Respiratory Rate Blood Pressure O2 Sat by Pulse 96 93 96 Oximetry O2 Sat by Pulse Oximetry [ Bilateral Throughout] 10/22/21 10/22/21 10/22/21 03:36 03:39 03:42 Temperature Pulse Rate 85 78 61 Respiratory Rate Blood Pressure O2 Sat by Pulse 92 95 94 Oximetry O2 Sat by Pulse Oximetry [ Bilateral Throughout] 10/22/21 10/22/21 10/22/21 03:44 03:48 03:51 Temperature Pulse Rate 68 86 83 Respiratory Rate Blood Pressure O2 Sat by Pulse 96 93 97 Oximetry O2 Sat by Pulse Oximetry [ Bilateral Throughout] 10/22/21 10/22/21 10/22/21 03:56 04:01 04:06 Temperature Pulse Rate 79 76 82 Respiratory Rate Blood Pressure O2 Sat by Pulse 99 97 99 Oximetry O2 Sat by Pulse Oximetry [ Bilateral Throughout] 10/22/21 10/22/21 10/22/21 04:11 04:16 04:21 Temperature Pulse Rate 70 66 79 Respiratory Rate Blood Pressure O2 Sat by Pulse 98 98 99 Oximetry O2 Sat by Pulse Oximetry [ Bilateral Throughout] 10/22/21 10/22/21 10/22/21 04:22 04:26 04:30 Temperature Pulse Rate 70 75 80 Respiratory Rate Blood Pressure 122/70 O2 Sat by Pulse 95 94 Oximetry O2 Sat by Pulse Oximetry [ Bilateral Throughout] 10/22/21 10/22/21 10/22/21 04:31 04:36 04:41 Temperature Pulse Rate 68 69 69 Respiratory Rate Blood Pressure O2 Sat by Pulse 99 94 90 Oximetry O2 Sat by Pulse Oximetry [ Bilateral Throughout] 10/22/21 10/22/21 10/22/21 04:46 04:51 04:52 Temperature Pulse Rate 90 69 78 Respiratory Rate Blood Pressure O2 Sat by Pulse 89 88 88 Oximetry O2 Sat by Pulse Oximetry [ Bilateral Throughout] 10/22/21 10/22/21 10/22/21 04:56 04:57 05:01 Temperature Pulse Rate 71 86 70 Respiratory Rate Blood Pressure O2 Sat by Pulse 99 92 77 L Oximetry O2 Sat by Pulse Oximetry [ Bilateral Throughout] 10/22/21 10/22/21 10/22/21 05:03 05:06 05:08 Temperature Pulse Rate 70 74 69 Respiratory Rate Blood Pressure O2 Sat by Pulse 85 94 92 Oximetry O2 Sat by Pulse Oximetry [ Bilateral Throughout] 10/22/21 10/22/21 10/22/21 05:11 05:14 05:16 Temperature Pulse Rate 71 90 75 Respiratory Rate Blood Pressure O2 Sat by Pulse 93 91 93 Oximetry O2 Sat by Pulse Oximetry [ Bilateral Throughout] 10/22/21 10/22/21 10/22/21 05:21 05:26 05:31 Temperature Pulse Rate 65 86 71 Respiratory Rate Blood Pressure 113/74 O2 Sat by Pulse 92 93 91 Oximetry O2 Sat by Pulse Oximetry [ Bilateral Throughout] 10/22/21 10/22/21 10/22/21 05:32 05:36 05:37 Temperature Pulse Rate 82 73 73 Respiratory Rate Blood Pressure O2 Sat by Pulse 91 92 92 Oximetry O2 Sat by Pulse Oximetry [ Bilateral Throughout] 10/22/21 10/22/21 10/22/21 05:41 05:42 05:46 Temperature Pulse Rate 71 68 61 Respiratory Rate Blood Pressure O2 Sat by Pulse 93 93 89 Oximetry O2 Sat by Pulse Oximetry [ Bilateral Throughout] 10/22/21 10/22/21 10/22/21 05:47 05:51 05:53 Temperature Pulse Rate 72 68 71 Respiratory Rate Blood Pressure O2 Sat by Pulse 88 91 93 Oximetry O2 Sat by Pulse Oximetry [ Bilateral Throughout] 10/22/21 10/22/21 10/22/21 05:56 05:58 06:01 Temperature Pulse Rate 62 69 71 Respiratory Rate Blood Pressure O2 Sat by Pulse 97 92 97 Oximetry O2 Sat by Pulse Oximetry [ Bilateral Throughout] 10/22/21 10/22/21 10/22/21 06:03 06:06 06:09 Temperature Pulse Rate 70 78 70 Respiratory Rate Blood Pressure O2 Sat by Pulse 92 90 92 Oximetry O2 Sat by Pulse Oximetry [ Bilateral Throughout] 10/22/21 10/22/21 10/22/21 06:11 06:14 06:16 Temperature Pulse Rate 64 83 66 Respiratory Rate Blood Pressure O2 Sat by Pulse 84 85 78 L Oximetry O2 Sat by Pulse Oximetry [ Bilateral Throughout] 10/22/21 10/22/21 10/22/21 06:20 06:21 06:22 Temperature Pulse Rate 66 67 73 Respiratory Rate Blood Pressure 155/86 O2 Sat by Pulse 90 99 Oximetry O2 Sat by Pulse Oximetry [ Bilateral Throughout] 10/22/21 10/22/21 10/22/21 06:26 06:31 06:36 Temperature Pulse Rate 62 66 67 Respiratory Rate Blood Pressure O2 Sat by Pulse 95 95 96 Oximetry O2 Sat by Pulse Oximetry [ Bilateral Throughout] 10/22/21 10/22/21 10/22/21 06:40 06:41 06:45 Temperature Pulse Rate 67 66 63 Respiratory Rate Blood Pressure O2 Sat by Pulse 94 96 94 Oximetry O2 Sat by Pulse Oximetry [ Bilateral Throughout] 10/22/21 10/22/21 10/22/21 06:46 06:51 06:56 Temperature Pulse Rate 76 71 71 Respiratory Rate Blood Pressure O2 Sat by Pulse 93 95 95 Oximetry O2 Sat by Pulse Oximetry [ Bilateral Throughout] 10/22/21 10/22/21 10/22/21 06:57 07:01 07:03 Temperature Pulse Rate 68 68 66 Respiratory Rate Blood Pressure O2 Sat by Pulse 93 96 94 Oximetry O2 Sat by Pulse Oximetry [ Bilateral Throughout] 10/22/21 10/22/21 10/22/21 07:06 07:09 07:11 Temperature Pulse Rate 67 73 66 Respiratory Rate Blood Pressure O2 Sat by Pulse 96 90 96 Oximetry O2 Sat by Pulse Oximetry [ Bilateral Throughout] 10/22/21 10/22/21 10/22/21 07:14 07:16 07:20 Temperature Pulse Rate 94 H 66 61 Respiratory Rate Blood Pressure O2 Sat by Pulse 91 94 90 Oximetry O2 Sat by Pulse Oximetry [ Bilateral Throughout] 10/22/21 10/22/21 10/22/21 07:21 07:22 07:26 Temperature Pulse Rate 70 64 65 Respiratory Rate Blood Pressure 152/81 O2 Sat by Pulse 97 95 Oximetry O2 Sat by Pulse Oximetry [ Bilateral Throughout] 10/22/21 10/22/21 10/22/21 07:31 07:36 07:41 Temperature Pulse Rate 94 H 65 67 Respiratory Rate Blood Pressure O2 Sat by Pulse 92 94 93 Oximetry O2 Sat by Pulse Oximetry [ Bilateral Throughout] 10/22/21 10/22/21 10/22/21 07:54 07:59 08:04 Temperature Pulse Rate 84 93 H 100 H Respiratory Rate Blood Pressure O2 Sat by Pulse 98 98 95 Oximetry O2 Sat by Pulse Oximetry [ Bilateral Throughout] 10/22/21 10/22/21 10/22/21 08:09 08:14 08:19 Temperature Pulse Rate 83 74 83 Respiratory Rate Blood Pressure O2 Sat by Pulse 98 99 98 Oximetry O2 Sat by Pulse Oximetry [ Bilateral Throughout] 10/22/21 10/22/21 10/22/21 08:24 08:29 08:34 Temperature Pulse Rate 76 80 76 Respiratory Rate Blood Pressure O2 Sat by Pulse 97 98 99 Oximetry O2 Sat by Pulse Oximetry [ Bilateral Throughout] 10/22/21 10/22/21 10/22/21 08:39 08:44 08:49 Temperature Pulse Rate 83 80 81 Respiratory Rate Blood Pressure O2 Sat by Pulse 97 99 98 Oximetry O2 Sat by Pulse Oximetry [ Bilateral Throughout] 10/22/21 10/22/21 10/22/21 08:51 08:54 08:59 Temperature Pulse Rate 78 82 83 Respiratory Rate Blood Pressure 129/81 O2 Sat by Pulse 98 99 Oximetry O2 Sat by Pulse Oximetry [ Bilateral Throughout] 10/22/21 10/22/21 10/22/21 09:04 09:09 09:14 Temperature Pulse Rate 83 81 94 H Respiratory Rate Blood Pressure O2 Sat by Pulse 98 99 99 Oximetry O2 Sat by Pulse Oximetry [ Bilateral Throughout] - Exam Breasts: deferred Cardiovascular: Regular rate Lungs: Normal air movement Abdomen: Present: normal appearance, soft. Absent: distention, tenderness, guarding Vulva: both: normal Uterus: Present: normal, other (gravid at term) FHR: auscultation normal, category 1 Uterine Contraction Monitor Mode: External Cervical Dilatation: 0 Cervical Effacement Percentage: 0 station: OOP Uterine Contraction Pattern: Irregular Uterine Tone Measurement Phase: Resting Extremities: normal - Labs Labs: Abnormal Labs 10/20/21 10/20/21 10/20/21 21:17 22:23 Unknown RBC 3.08 L Hgb 9.8 L Hct 27.1 L MCHC 36 H Potassium 3.1 L Creatinine 0.5 L Urine Creatinine Ur Total Protein 24 Hr 306.00 H Urine Total Protein 17 H 10/20/21 Unknown RBC Hgb Hct MCHC Potassium Creatinine Urine Creatinine 157.1 H Ur Total Protein 24 Hr Urine Total Protein 34 H Laboratory Results - last 24 hr 10/20/21 10/21/21 21:17 09:32 Urine Total Volume 1800 Ur Total Protein 24 Hr 306.00 H Urine Total Protein 17 H SARS-CoV-2 (PCR) Negative
[2021-10-22] MEDS ORDERED: OXYTOCIN DRIP 30,000 MILLIUNITS/500 ML BAG IV ONE (10:00)
[2021-10-22] MEDS: LACTATED RINGERS 1,000 ML IV SCH (10:30)
[2021-10-22] MEDS: valACYclovir 500 MG TAB PO SCH (10:31)
[2021-10-22] MEDS: PRENATAL VIT27-FE FUMARATE-FOLIC ACID VIT TAB PO SCH (10:31)
[2021-10-22] MEDS ORDERED: DINOPROSTONE 10 MG VAG SUPP VG SCH (17:11)
--- NOTE | 2021-10-22 17:27 | Progress Note ---
Assessment and Plan Per RN exam, pt without cervical change. SVE deferred. POC d/w pt. Questions encouraged and addressed. Plan discussed for pm care and dinner, then cervidil to be placed. Pt verbalizes understanding and agrees to POC. Susanne RN at bedside and agrees to POC. Dr Jackson aware. - Patient Problems (1) 37 or more weeks gestation of Current Visit: Yes Status: Acute (2) Elevated blood pressure affecting , antepartum Current Visit: Yes Status: Acute Plan to address problem: Continue to monitor blood pressures. Monitor for s/sx of worsening pre eclampsia. Notify provider with any elevated BPs or changes in pt status Subjective - Subjective Date of service: 10/22/21 Principal diagnosis: IUP@ 37.3wks, Preeclampsia Patient reports: movement normal, other (pt denies having any complaints), no new complaints, no loss of fluid, no vaginal bleeding, no contractions Objective - Vital Signs Vital Signs: Vital Signs - 12hr 10/22/21 10/22/21 10/22/21 05:26 05:31 05:32 Temperature Pulse Rate 86 71 82 Blood Pressure O2 Sat by Pulse 93 91 91 Oximetry O2 Sat by Pulse Oximetry [ Bilateral Throughout] 10/22/21 10/22/21 10/22/21 05:36 05:37 05:41 Temperature Pulse Rate 73 73 71 Blood Pressure O2 Sat by Pulse 92 92 93 Oximetry O2 Sat by Pulse Oximetry [ Bilateral Throughout] 10/22/21 10/22/21 10/22/21 05:42 05:46 05:47 Temperature Pulse Rate 68 61 72 Blood Pressure O2 Sat by Pulse 93 89 88 Oximetry O2 Sat by Pulse Oximetry [ Bilateral Throughout] 10/22/21 10/22/21 10/22/21 05:51 05:53 05:56 Temperature Pulse Rate 68 71 62 Blood Pressure O2 Sat by Pulse 91 93 97 Oximetry O2 Sat by Pulse Oximetry [ Bilateral Throughout] 10/22/21 10/22/21 10/22/21 05:58 06:01 06:03 Temperature Pulse Rate 69 71 70 Blood Pressure O2 Sat by Pulse 92 97 92 Oximetry O2 Sat by Pulse Oximetry [ Bilateral Throughout] 10/22/21 10/22/21 10/22/21 06:06 06:09 06:11 Temperature Pulse Rate 78 70 64 Blood Pressure O2 Sat by Pulse 90 92 84 Oximetry O2 Sat by Pulse Oximetry [ Bilateral Throughout] 10/22/21 10/22/21 10/22/21 06:14 06:16 06:20 Temperature Pulse Rate 83 66 66 Blood Pressure O2 Sat by Pulse 85 78 L 90 Oximetry O2 Sat by Pulse Oximetry [ Bilateral Throughout] 10/22/21 10/22/21 10/22/21 06:21 06:22 06:26 Temperature Pulse Rate 67 73 62 Blood Pressure 155/86 O2 Sat by Pulse 99 95 Oximetry O2 Sat by Pulse Oximetry [ Bilateral Throughout] 10/22/21 10/22/21 10/22/21 06:31 06:36 06:40 Temperature Pulse Rate 66 67 67 Blood Pressure O2 Sat by Pulse 95 96 94 Oximetry O2 Sat by Pulse Oximetry [ Bilateral Throughout] 10/22/21 10/22/21 10/22/21 06:41 06:45 06:46 Temperature Pulse Rate 66 63 76 Blood Pressure O2 Sat by Pulse 96 94 93 Oximetry O2 Sat by Pulse Oximetry [ Bilateral Throughout] 10/22/21 10/22/21 10/22/21 06:51 06:56 06:57 Temperature Pulse Rate 71 71 68 Blood Pressure O2 Sat by Pulse 95 95 93 Oximetry O2 Sat by Pulse Oximetry [ Bilateral Throughout] 10/22/21 10/22/21 10/22/21 07:01 07:03 07:06 Temperature Pulse Rate 68 66 67 Blood Pressure O2 Sat by Pulse 96 94 96 Oximetry O2 Sat by Pulse Oximetry [ Bilateral Throughout] 10/22/21 10/22/21 10/22/21 07:09 07:11 07:14 Temperature Pulse Rate 73 66 94 H Blood Pressure O2 Sat by Pulse 90 96 91 Oximetry O2 Sat by Pulse Oximetry [ Bilateral Throughout] 10/22/21 10/22/21 10/22/21 07:16 07:20 07:21 Temperature Pulse Rate 66 61 70 Blood Pressure O2 Sat by Pulse 94 90 97 Oximetry O2 Sat by Pulse Oximetry [ Bilateral Throughout] 10/22/21 10/22/21 10/22/21 07:22 07:26 07:31 Temperature Pulse Rate 64 65 94 H Blood Pressure 152/81 O2 Sat by Pulse 95 92 Oximetry O2 Sat by Pulse Oximetry [ Bilateral Throughout] 10/22/21 10/22/21 10/22/21 07:36 07:41 07:54 Temperature Pulse Rate 65 67 84 Blood Pressure O2 Sat by Pulse 94 93 98 Oximetry O2 Sat by Pulse Oximetry [ Bilateral Throughout] 10/22/21 10/22/21 10/22/21 07:59 08:00 08:04 Temperature 98.1 F Pulse Rate 93 H 100 H Blood Pressure O2 Sat by Pulse 98 95 Oximetry O2 Sat by Pulse 98 Oximetry [ Bilateral Throughout] 10/22/21 10/22/21 10/22/21 08:09 08:14 08:19 Temperature Pulse Rate 83 74 83 Blood Pressure O2 Sat by Pulse 98 99 98 Oximetry O2 Sat by Pulse Oximetry [ Bilateral Throughout] 10/22/21 10/22/21 10/22/21 08:24 08:29 08:34 Temperature Pulse Rate 76 80 76 Blood Pressure O2 Sat by Pulse 97 98 99 Oximetry O2 Sat by Pulse Oximetry [ Bilateral Throughout] 10/22/21 10/22/21 10/22/21 08:39 08:44 08:49 Temperature Pulse Rate 83 80 81 Blood Pressure O2 Sat by Pulse 97 99 98 Oximetry O2 Sat by Pulse Oximetry [ Bilateral Throughout] 10/22/21 10/22/21 10/22/21 08:51 08:54 08:59 Temperature Pulse Rate 78 82 83 Blood Pressure 129/81 O2 Sat by Pulse 98 99 Oximetry O2 Sat by Pulse Oximetry [ Bilateral Throughout] 10/22/21 10/22/21 10/22/21 09:04 09:09 09:14 Temperature Pulse Rate 83 81 94 H Blood Pressure O2 Sat by Pulse 98 99 99 Oximetry O2 Sat by Pulse Oximetry [ Bilateral Throughout] 10/22/21 10/22/21 10/22/21 09:19 09:22 09:24 Temperature Pulse Rate 86 93 H 77 Blood Pressure 124/78 O2 Sat by Pulse 97 99 Oximetry O2 Sat by Pulse Oximetry [ Bilateral Throughout] 10/22/21 10/22/21 10/22/21 09:34 09:39 09:44 Temperature Pulse Rate 82 81 87 Blood Pressure O2 Sat by Pulse 99 98 99 Oximetry O2 Sat by Pulse Oximetry [ Bilateral Throughout] 10/22/21 10/22/21 10/22/21 09:49 09:54 09:59 Temperature Pulse Rate 82 82 73 Blood Pressure O2 Sat by Pulse 96 98 99 Oximetry O2 Sat by Pulse Oximetry [ Bilateral Throughout] 10/22/21 10/22/21 10/22/21 10:04 10:09 10:14 Temperature Pulse Rate 74 81 76 Blood Pressure O2 Sat by Pulse 96 96 98 Oximetry O2 Sat by Pulse Oximetry [ Bilateral Throughout] 10/22/21 10/22/21 10/22/21 10:19 10:21 10:24 Temperature Pulse Rate 79 77 73 Blood Pressure 140/83 O2 Sat by Pulse 98 97 Oximetry O2 Sat by Pulse Oximetry [ Bilateral Throughout] 10/22/21 10/22/21 10/22/21 10:29 10:34 10:39 Temperature Pulse Rate 76 82 75 Blood Pressure O2 Sat by Pulse 97 98 98 Oximetry O2 Sat by Pulse Oximetry [ Bilateral Throughout] 10/22/21 10/22/21 10/22/21 10:44 10:49 10:54 Temperature Pulse Rate 73 68 74 Blood Pressure O2 Sat by Pulse 99 99 98 Oximetry O2 Sat by Pulse Oximetry [ Bilateral Throughout] 10/22/21 10/22/21 10/22/21 10:59 11:04 11:09 Temperature Pulse Rate 75 76 79 Blood Pressure O2 Sat by Pulse 98 97 96 Oximetry O2 Sat by Pulse Oximetry [ Bilateral Throughout] 10/22/21 10/22/21 10/22/21 11:14 11:19 11:20 Temperature Pulse Rate 72 74 72 Blood Pressure O2 Sat by Pulse 94 98 94 Oximetry O2 Sat by Pulse Oximetry [ Bilateral Throughout] 10/22/21 10/22/21 10/22/21 11:22 11:24 11:25 Temperature Pulse Rate 68 69 68 Blood Pressure 137/87 O2 Sat by Pulse 98 93 Oximetry O2 Sat by Pulse Oximetry [ Bilateral Throughout] 10/22/21 10/22/21 10/22/21 11:29 11:30 11:34 Temperature Pulse Rate 77 76 69 Blood Pressure O2 Sat by Pulse 96 94 97 Oximetry O2 Sat by Pulse Oximetry [ Bilateral Throughout] 10/22/21 10/22/21 10/22/21 11:35 11:39 11:41 Temperature Pulse Rate 68 79 73 Blood Pressure O2 Sat by Pulse 92 93 91 Oximetry O2 Sat by Pulse Oximetry [ Bilateral Throughout] 10/22/21 10/22/21 10/22/21 11:44 11:46 11:49 Temperature Pulse Rate 65 86 77 Blood Pressure O2 Sat by Pulse 99 91 92 Oximetry O2 Sat by Pulse Oximetry [ Bilateral Throughout] 10/22/21 10/22/21 10/22/21 11:52 11:54 11:57 Temperature Pulse Rate 76 74 75 Blood Pressure O2 Sat by Pulse 93 94 92 Oximetry O2 Sat by Pulse Oximetry [ Bilateral Throughout] 10/22/21 10/22/21 10/22/21 11:59 12:02 12:04 Temperature Pulse Rate 82 85 89 Blood Pressure O2 Sat by Pulse 91 92 89 Oximetry O2 Sat by Pulse Oximetry [ Bilateral Throughout] 10/22/21 10/22/21 10/22/21 12:08 12:09 12:13 Temperature Pulse Rate 67 70 74 Blood Pressure O2 Sat by Pulse 91 98 92 Oximetry O2 Sat by Pulse Oximetry [ Bilateral Throughout] 10/22/21 10/22/21 10/22/21 12:14 12:18 12:19 Temperature Pulse Rate 74 89 68 Blood Pressure O2 Sat by Pulse 90 91 99 Oximetry O2 Sat by Pulse Oximetry [ Bilateral Throughout] 10/22/21 10/22/21 10/22/21 12:21 12:24 12:29 Temperature Pulse Rate 83 72 74 Blood Pressure 134/93 O2 Sat by Pulse 93 98 Oximetry O2 Sat by Pulse Oximetry [ Bilateral Throughout] 10/22/21 10/22/21 10/22/21 12:30 12:34 12:36 Temperature Pulse Rate 80 65 77 Blood Pressure O2 Sat by Pulse 94 95 94 Oximetry O2 Sat by Pulse Oximetry [ Bilateral Throughout] 10/22/21 10/22/21 10/22/21 12:39 12:42 12:44 Temperature Pulse Rate 76 81 74 Blood Pressure O2 Sat by Pulse 91 93 95 Oximetry O2 Sat by Pulse Oximetry [ Bilateral Throughout] 10/22/21 10/22/21 10/22/21 12:48 12:49 12:54 Temperature Pulse Rate 66 71 73 Blood Pressure O2 Sat by Pulse 93 95 87 Oximetry O2 Sat by Pulse Oximetry [ Bilateral Throughout] 10/22/21 10/22/21 10/22/21 12:59 13:04 13:09 Temperature Pulse Rate 65 64 68 Blood Pressure O2 Sat by Pulse 99 88 99 Oximetry O2 Sat by Pulse Oximetry [ Bilateral Throughout] 10/22/21 10/22/21 10/22/21 13:14 13:19 13:22 Temperature Pulse Rate 71 73 66 Blood Pressure 167/87 O2 Sat by Pulse 93 84 Oximetry O2 Sat by Pulse Oximetry [ Bilateral Throughout] 10/22/21 10/22/21 10/22/21 13:24 13:25 13:29 Temperature Pulse Rate 67 79 69 Blood Pressure O2 Sat by Pulse 95 92 98 Oximetry O2 Sat by Pulse Oximetry [ Bilateral Throughout] 10/22/21 10/22/21 10/22/21 13:31 13:34 13:36 Temperature Pulse Rate 62 71 69 Blood Pressure O2 Sat by Pulse 93 95 93 Oximetry O2 Sat by Pulse Oximetry [ Bilateral Throughout] 10/22/21 10/22/21 10/22/21 13:39 13:41 13:44 Temperature Pulse Rate 66 62 70 Blood Pressure O2 Sat by Pulse 91 92 93 Oximetry O2 Sat by Pulse Oximetry [ Bilateral Throughout] 10/22/21 10/22/21 10/22/21 13:47 13:49 13:52 Temperature Pulse Rate 66 71 64 Blood Pressure O2 Sat by Pulse 93 95 92 Oximetry O2 Sat by Pulse Oximetry [ Bilateral Throughout] 10/22/21 10/22/21 10/22/21 13:54 13:57 13:59 Temperature Pulse Rate 67 66 64 Blood Pressure O2 Sat by Pulse 93 93 93 Oximetry O2 Sat by Pulse Oximetry [ Bilateral Throughout] 10/22/21 10/22/21 10/22/21 14:02 14:04 14:08 Temperature Pulse Rate 77 76 66 Blood Pressure O2 Sat by Pulse 93 96 91 Oximetry O2 Sat by Pulse Oximetry [ Bilateral Throughout] 10/22/21 10/22/21 10/22/21 14:09 14:13 14:14 Temperature Pulse Rate 71 77 73 Blood Pressure O2 Sat by Pulse 97 90 97 Oximetry O2 Sat by Pulse Oximetry [ Bilateral Throughout] 10/22/21 10/22/21 10/22/21 14:25 14:30 14:35 Temperature Pulse Rate 91 H 72 69 Blood Pressure O2 Sat by Pulse 96 100 99 Oximetry O2 Sat by Pulse Oximetry [ Bilateral Throughout] 10/22/21 10/22/21 10/22/21 14:40 14:45 14:50 Temperature Pulse Rate 72 71 74 Blood Pressure O2 Sat by Pulse 99 98 97 Oximetry O2 Sat by Pulse Oximetry [ Bilateral Throughout] 10/22/21 10/22/21 10/22/21 14:55 15:00 15:05 Temperature Pulse Rate 67 75 82 Blood Pressure O2 Sat by Pulse 97 99 99 Oximetry O2 Sat by Pulse Oximetry [ Bilateral Throughout] 10/22/21 10/22/21 10/22/21 15:06 15:10 15:15 Temperature Pulse Rate 71 72 78 Blood Pressure 134/72 O2 Sat by Pulse 100 100 Oximetry O2 Sat by Pulse Oximetry [ Bilateral Throughout] 10/22/21 10/22/21 10/22/21 15:20 15:22 15:25 Temperature Pulse Rate 73 71 73 Blood Pressure 133/82 O2 Sat by Pulse 100 100 Oximetry O2 Sat by Pulse Oximetry [ Bilateral Throughout] 10/22/21 10/22/21 10/22/21 15:30 15:35 15:40 Temperature Pulse Rate 78 71 73 Blood Pressure O2 Sat by Pulse 100 100 100 Oximetry O2 Sat by Pulse Oximetry [ Bilateral Throughout] 10/22/21 10/22/21 10/22/21 15:45 15:50 15:55 Temperature Pulse Rate 77 71 70 Blood Pressure O2 Sat by Pulse 100 100 100 Oximetry O2 Sat by Pulse Oximetry [ Bilateral Throughout] 10/22/21 10/22/21 10/22/21 16:00 16:05 16:10 Temperature Pulse Rate 70 68 70 Blood Pressure O2 Sat by Pulse 100 100 100 Oximetry O2 Sat by Pulse Oximetry [ Bilateral Throughout] 10/22/21 10/22/21 10/22/21 16:15 16:20 16:23 Temperature Pulse Rate 73 71 71 Blood Pressure 145/90 O2 Sat by Pulse 100 100 Oximetry O2 Sat by Pulse Oximetry [ Bilateral Throughout] 10/22/21 10/22/21 10/22/21 16:25 16:30 16:35 Temperature Pulse Rate 74 74 73 Blood Pressure O2 Sat by Pulse 100 100 100 Oximetry O2 Sat by Pulse Oximetry [ Bilateral Throughout] 10/22/21 10/22/21 10/22/21 16:51 16:56 17:01 Temperature Pulse Rate 71 73 80 Blood Pressure O2 Sat by Pulse 100 99 99 Oximetry O2 Sat by Pulse Oximetry [ Bilateral Throughout] 10/22/21 10/22/21 10/22/21 17:06 17:11 17:16 Temperature Pulse Rate 78 84 74 Blood Pressure O2 Sat by Pulse 97 98 99 Oximetry O2 Sat by Pulse Oximetry [ Bilateral Throughout] 10/22/21 17:21 Temperature Pulse Rate 80 Blood Pressure 132/90 O2 Sat by Pulse 99 Oximetry O2 Sat by Pulse Oximetry [ Bilateral Throughout] - Exam Breasts: deferred Cardiovascular: Regular rate Lungs: Normal air movement Abdomen: Present: normal appearance, soft. Absent: distention, tenderness, guarding Uterus: Present: normal, other (gravid at term) FHR: auscultation normal, category 1 Uterine Contraction Monitor Mode: External Uterine Contraction Pattern: Regular Uterine Tone Measurement Phase: Resting Extremities: normal - Labs Labs: Abnormal Labs 10/20/21 10/20/21 10/20/21 21:17 22:23 Unknown RBC 3.08 L Hgb 9.8 L Hct 27.1 L MCHC 36 H Potassium 3.1 L Creatinine 0.5 L Urine Creatinine Ur Total Protein 24 Hr 306.00 H Urine Total Protein 17 H 10/20/21 Unknown RBC Hgb Hct MCHC Potassium Creatinine Urine Creatinine 157.1 H Ur Total Protein 24 Hr Urine Total Protein 34 H Laboratory Results - last 24 hr 10/20/21 21:17 Urine Total Volume 1800 Ur Total Protein 24 Hr 306.00 H Urine Total Protein 17 H
[2021-10-22] MEDS: diphenhydrAMINE 50 MG CAP PO PRN (21:26)
[2021-10-22] MEDS ORDERED: GABAPENTIN 100 MG CAP PO ONE (23:56)
--- NOTE | 2021-10-23 07:51 | Progress Note ---
Assessment and Plan 41 y/o , IOL for mild pre-e, cervidil removed w/o cervical change. discussed nature of serial IOL, all questions addressed. Plan: AM care and diet this morning po cytotec vs pitocin depending on ctx frequency after AM care. Continue close monitoring of b/p consider mag sulfate in labor or for b/p in severe range - Patient Problems (1) Pre-eclampsia Current Visit: Yes Status: Acute Qualifiers: Trimester: third trimester Qualified Code(s): O14.93 - Unspecified pre- eclampsia, third trimester (2) 37 or more weeks gestation of Current Visit: Yes Status: Acute (3) Hx of herpes genitalis Current Visit: Yes Status: Acute Plan to address problem: no lesions noted during assessment this morning Subjective - Subjective Date of service: 10/23/21 Principal diagnosis: IUP@ 37.4wks, Preeclampsia Patient reports: movement normal, contractions, other (denies [place]ANDLER, visual changes or epigastric pain), no new complaints, no loss of fluid, no vaginal bleeding Objective - Vital Signs Vital Signs: Vital Signs - 12hr 10/22/21 10/22/21 10/22/21 19:46 19:51 19:56 Pulse Rate 76 77 76 Blood Pressure O2 Sat by Pulse 99 97 97 Oximetry 10/22/21 10/22/21 10/22/21 20:01 20:06 20:11 Pulse Rate 75 75 74 Blood Pressure O2 Sat by Pulse 98 97 98 Oximetry 10/22/21 10/22/21 10/22/21 20:16 20:21 20:26 Pulse Rate 71 74 73 Blood Pressure 122/60 O2 Sat by Pulse 98 98 99 Oximetry 10/22/21 10/22/21 10/22/21 20:31 20:36 20:41 Pulse Rate 73 72 75 Blood Pressure O2 Sat by Pulse 98 96 99 Oximetry 10/22/21 10/22/21 10/22/21 20:46 20:51 20:56 Pulse Rate 70 72 69 Blood Pressure O2 Sat by Pulse 100 96 99 Oximetry 10/22/21 10/22/21 10/22/21 21:01 21:06 21:11 Pulse Rate 73 77 72 Blood Pressure O2 Sat by Pulse 98 98 99 Oximetry 10/22/21 10/22/21 10/22/21 21:16 21:26 21:30 Pulse Rate 70 90 68 Blood Pressure 139/67 O2 Sat by Pulse 98 98 Oximetry 10/22/21 10/22/21 10/22/21 21:31 21:36 21:41 Pulse Rate 68 67 78 Blood Pressure O2 Sat by Pulse 99 98 97 Oximetry 10/22/21 10/22/21 10/22/21 21:46 21:51 21:56 Pulse Rate 70 67 70 Blood Pressure O2 Sat by Pulse 99 99 99 Oximetry 10/22/21 10/22/21 10/22/21 22:01 22:06 22:11 Pulse Rate 71 67 73 Blood Pressure O2 Sat by Pulse 99 99 99 Oximetry 10/22/21 10/22/21 10/22/21 22:16 22:21 22:26 Pulse Rate 78 72 72 Blood Pressure 152/86 O2 Sat by Pulse 99 99 99 Oximetry 10/22/21 10/22/21 10/22/21 22:31 22:44 22:49 Pulse Rate 74 71 77 Blood Pressure O2 Sat by Pulse 98 99 97 Oximetry 10/22/21 10/22/21 10/22/21 22:54 22:59 23:04 Pulse Rate 66 76 75 Blood Pressure O2 Sat by Pulse 99 100 98 Oximetry 10/22/21 10/22/21 10/22/21 23:09 23:14 23:19 Pulse Rate 70 81 69 Blood Pressure O2 Sat by Pulse 100 99 99 Oximetry 10/22/21 10/22/21 10/22/21 23:21 23:24 23:29 Pulse Rate 65 65 69 Blood Pressure 143/75 O2 Sat by Pulse 99 99 Oximetry 10/22/21 10/22/21 10/22/21 23:34 23:36 23:39 Pulse Rate 82 71 71 Blood Pressure O2 Sat by Pulse 97 93 96 Oximetry 10/22/21 10/22/21 10/22/21 23:42 23:44 23:48 Pulse Rate 70 81 69 Blood Pressure O2 Sat by Pulse 91 97 93 Oximetry 10/22/21 10/22/21 10/22/21 23:49 23:53 23:54 Pulse Rate 84 75 71 Blood Pressure O2 Sat by Pulse 95 92 98 Oximetry 10/22/21 10/23/21 10/23/21 23:59 00:03 00:04 Pulse Rate 74 71 82 Blood Pressure O2 Sat by Pulse 98 93 97 Oximetry 10/23/21 10/23/21 10/23/21 00:10 00:15 00:20 Pulse Rate 92 H 69 64 Blood Pressure O2 Sat by Pulse 100 98 94 Oximetry 10/23/21 10/23/21 10/23/21 00:23 00:24 00:25 Pulse Rate 81 71 69 Blood Pressure 130/104 138/80 O2 Sat by Pulse 97 Oximetry 10/23/21 10/23/21 10/23/21 00:30 00:32 00:35 Pulse Rate 70 69 71 Blood Pressure O2 Sat by Pulse 97 94 96 Oximetry 10/23/21 10/23/21 10/23/21 00:39 00:40 00:45 Pulse Rate 75 75 69 Blood Pressure O2 Sat by Pulse 92 97 97 Oximetry 10/23/21 10/23/21 10/23/21 00:46 00:50 00:51 Pulse Rate 70 72 78 Blood Pressure O2 Sat by Pulse 93 98 91 Oximetry 10/23/21 10/23/21 10/23/21 00:55 00:57 01:00 Pulse Rate 74 71 73 Blood Pressure O2 Sat by Pulse 97 93 98 Oximetry 10/23/21 10/23/21 10/23/21 01:02 01:05 01:07 Pulse Rate 84 86 71 Blood Pressure O2 Sat by Pulse 90 77 L 91 Oximetry 10/23/21 10/23/21 10/23/21 01:10 01:13 01:15 Pulse Rate 82 75 70 Blood Pressure O2 Sat by Pulse 96 93 91 Oximetry 10/23/21 10/23/21 10/23/21 01:18 01:20 01:21 Pulse Rate 81 66 62 Blood Pressure 124/77 O2 Sat by Pulse 92 98 Oximetry 10/23/21 10/23/21 10/23/21 01:23 01:25 01:29 Pulse Rate 68 65 64 Blood Pressure O2 Sat by Pulse 90 99 91 Oximetry 10/23/21 10/23/21 10/23/21 01:30 01:35 01:36 Pulse Rate 67 67 73 Blood Pressure O2 Sat by Pulse 94 97 91 Oximetry 10/23/21 10/23/21 10/23/21 01:40 01:41 01:45 Pulse Rate 65 70 67 Blood Pressure O2 Sat by Pulse 96 90 87 Oximetry 10/23/21 10/23/2122 01:47 01:50 01:52 Pulse Rate 76 66 78 Blood Pressure O2 Sat by Pulse 89 97 89 Oximetry 10/23/21 10/23/21 10/23/21 01:55 01:58 02:00 Pulse Rate 84 72 64 Blood Pressure O2 Sat by Pulse 84 88 97 Oximetry 10/23/21 10/23/21 10/23/21 02:03 02:05 02:09 Pulse Rate 74 66 67 Blood Pressure O2 Sat by Pulse 89 94 90 Oximetry 10/23/21 10/23/21 10/23/21 02:10 02:14 02:15 Pulse Rate 65 81 81 Blood Pressure O2 Sat by Pulse 98 87 86 Oximetry 10/23/21 10/23/21 10/23/21 02:20 02:21 02:25 Pulse Rate 66 69 64 Blood Pressure 137/76 O2 Sat by Pulse 93 97 Oximetry 10/23/21 10/23/21 10/23/21 02:30 02:35 02:36 Pulse Rate 78 64 74 Blood Pressure O2 Sat by Pulse 91 99 90 Oximetry 10/23/21 10/23/21 10/23/21 02:42 02:47 02:49 Pulse Rate 91 H 69 68 Blood Pressure O2 Sat by Pulse 98 96 93 Oximetry 10/23/21 10/23/21 10/23/21 02:52 02:57 03:02 Pulse Rate 65 63 66 Blood Pressure O2 Sat by Pulse 96 99 93 Oximetry 10/23/21 10/23/21 10/23/21 03:07 03:08 03:12 Pulse Rate 70 70 83 Blood Pressure O2 Sat by Pulse 95 92 93 Oximetry 10/23/21 10/23/21 10/23/21 03:13 03:17 03:18 Pulse Rate 88 72 71 Blood Pressure O2 Sat by Pulse 90 96 93 Oximetry 10/23/21 10/23/21 10/23/21 03:21 03:22 03:24 Pulse Rate 80 70 82 Blood Pressure 134/73 O2 Sat by Pulse 95 89 Oximetry 10/23/21 10/23/21 10/23/21 03:27 03:29 03:32 Pulse Rate 68 87 69 Blood Pressure O2 Sat by Pulse 98 91 91 Oximetry 10/23/21 10/23/21 10/23/21 03:35 03:37 03:40 Pulse Rate 88 79 91 H Blood Pressure O2 Sat by Pulse 91 91 91 Oximetry 10/23/21 10/23/21 10/23/21 03:42 03:46 03:47 Pulse Rate 71 75 92 H Blood Pressure O2 Sat by Pulse 97 89 80 L Oximetry 10/23/21 10/23/21 10/23/21 03:51 03:52 03:56 Pulse Rate 97 H 81 94 H Blood Pressure O2 Sat by Pulse 88 75 L 88 Oximetry 10/23/21 10/23/21 10/23/21 03:57 04:01 04:02 Pulse Rate 93 H 89 89 Blood Pressure O2 Sat by Pulse 83 L 89 89 Oximetry 10/23/21 10/23/21 10/23/21 04:07 04:12 04:17 Pulse Rate 85 91 H 70 Blood Pressure O2 Sat by Pulse 95 100 90 Oximetry 10/23/21 10/23/21 10/23/21 04:22 04:23 04:32 Pulse Rate 78 91 H Blood Pressure 135/91 O2 Sat by Pulse 99 88 92 Oximetry 10/23/21 10/23/21 10/23/21 04:37 04:42 04:47 Pulse Rate 70 71 75 Blood Pressure O2 Sat by Pulse 98 97 96 Oximetry 10/23/21 10/23/21 10/23/21 04:52 04:57 05:02 Pulse Rate 75 69 77 Blood Pressure O2 Sat by Pulse 99 99 98 Oximetry 10/23/21 10/23/21 10/23/21 05:07 05:09 05:12 Pulse Rate 72 65 74 Blood Pressure O2 Sat by Pulse 97 93 93 Oximetry 10/23/21 10/23/21 10/23/21 05:14 05:17 05:20 Pulse Rate 74 73 82 Blood Pressure O2 Sat by Pulse 93 94 92 Oximetry 10/23/21 10/23/21 10/23/21 05:22 05:25 05:27 Pulse Rate 68 77 68 Blood Pressure 122/60 O2 Sat by Pulse 93 90 97 Oximetry 10/23/21 10/23/21 10/23/21 05:30 05:32 05:35 Pulse Rate 85 68 79 Blood Pressure O2 Sat by Pulse 89 83 L 92 Oximetry 10/23/21 10/23/21 10/23/21 05:37 05:41 05:42 Pulse Rate 78 75 75 Blood Pressure O2 Sat by Pulse 87 89 93 Oximetry 10/23/21 10/23/21 10/23/21 05:46 05:47 05:51 Pulse Rate 87 77 84 Blood Pressure O2 Sat by Pulse 88 89 89 Oximetry 10/23/21 10/23/21 10/23/21 05:52 05:57 06:02 Pulse Rate 65 64 72 Blood Pressure O2 Sat by Pulse 97 96 89 Oximetry 10/23/21 10/23/21 10/23/21 06:07 06:08 06:12 Pulse Rate 69 68 88 Blood Pressure O2 Sat by Pulse 98 88 80 L Oximetry 10/23/21 10/23/21 10/23/21 06:13 06:17 06:18 Pulse Rate 67 69 74 Blood Pressure O2 Sat by Pulse 88 91 88 Oximetry 10/23/21 10/23/21 10/23/21 06:22 06:23 06:27 Pulse Rate 63 78 63 Blood Pressure 137/63 O2 Sat by Pulse 98 89 83 L Oximetry 10/23/21 10/23/21 10/23/21 06:29 06:32 06:34 Pulse Rate 79 75 78 Blood Pressure O2 Sat by Pulse 88 91 89 Oximetry 10/23/21 10/23/21 10/23/21 06:37 06:39 06:42 Pulse Rate 65 81 78 Blood Pressure O2 Sat by Pulse 93 87 84 Oximetry 10/23/21 10/23/21 10/23/21 06:45 06:47 06:52 Pulse Rate 86 71 71 Blood Pressure O2 Sat by Pulse 87 99 100 Oximetry 10/23/21 10/23/21 10/23/21 06:57 07:02 07:07 Pulse Rate 70 68 74 Blood Pressure O2 Sat by Pulse 98 98 97 Oximetry 10/23/21 10/23/21 10/23/21 07:12 07:17 07:22 Pulse Rate 74 79 68 Blood Pressure O2 Sat by Pulse 99 98 98 Oximetry 10/23/21 10/23/21 10/23/21 07:27 07:32 07:37 Pulse Rate 74 84 79 Blood Pressure O2 Sat by Pulse 98 97 98 Oximetry 10/23/21 07:42 Pulse Rate 71 Blood Pressure O2 Sat by Pulse 98 Oximetry - Exam Cardiovascular: Regular rate Lungs: Normal air movement Abdomen: Present: normal appearance, soft Vulva: both: normal Uterus: Present: normal, fundal height above umbilicus FHR: auscultation normal, category 1 Uterine Contraction Monitor Mode: External Cervical Dilatation: 0 Cervical Effacement Percentage: 0 station: -4 Uterine Contraction Pattern: Irregular Uterine Tone Measurement Phase: Contraction Uterine Contraction Intensity: Moderate Extremities: normal Deep Tendon Reflex Grade: Normal +2 - Labs Labs: Abnormal Labs 10/20/21 10/20/21 10/20/21 21:17 22:23 Unknown RBC 3.08 L Hgb 9.8 L Hct 27.1 L MCHC 36 H Potassium 3.1 L Creatinine 0.5 L Urine Creatinine Ur Total Protein 24 Hr 306.00 H Urine Total Protein 17 H 10/20/21 Unknown RBC Hgb Hct MCHC Potassium Creatinine Urine Creatinine 157.1 H Ur Total Protein 24 Hr Urine Total Protein 34 H
[2021-10-23] MEDS: PRENATAL VIT27-FE FUMARATE-FOLIC ACID VIT TAB PO SCH (10:13)
[2021-10-23] MEDS: valACYclovir 500 MG TAB PO SCH (10:14)
[2021-10-23] MEDS: LACTATED RINGERS 1,000 ML IV SCH ×2 (10:31→18:10)
--- NOTE | 2021-10-23 17:21 | Anesthesia Consultation ---
Anesthesia Consult and Med Hx Date of service: 10/23/21 - Airway Anesthetic Teeth Evaluation: Good ROM Head & Neck: Adequate Mental/Hyoid Distance: Adequate Mallampati Class: Class II Intubation Access Assessment: Probably Good - Pulmonary Exam CTA: Yes - Cardiac Exam Cardiac Exam: RRR - Pre-Operative Health Status ASA Pre-Surgery Classification: ASA2 Proposed Anesthetic Plan: Epidural, Spinal - Pulmonary Hx Asthma: No COPD: No Hx Pneumonia: No - Cardiovascular System Hx Hypertension: No - Central Nervous System Hx Seizures: No Hx Psychiatric Problems: No - Endocrine Hx Renal Disease: No Hx End Stage Renal Disease: No Hx Hypothyroidism: No Hx Hyperthyroidism: No - Hematic Hx Anemia: Yes Hx Sickle Cell Disease: No - Other Systems Hx Alcohol Use: No Hx Obesity: No
--- NOTE | 2021-10-23 17:33 | Progress Note ---
Assessment and Plan SROM 1450, epidural placed and pt is comfortable. SVE 3/90/-3 (anterior); head feels asynclitic. IUPC placed without difficulty to better manage pitocin titration. Discussed plan with RN to use peanut ball and change positions frequently once epidural is well established. Plan to reassess PRN, anticipate . - Patient Problems (1) Pre-eclampsia Current Visit: Yes Status: Acute Qualifiers: Trimester: third trimester Qualified Code(s): O14.93 - Unspecified pre- eclampsia, third trimester (2) 37 or more weeks gestation of Current Visit: Yes Status: Acute (3) Hx of herpes genitalis Current Visit: Yes Status: Acute Plan to address problem: no lesions noted during assessment this morning Subjective - Subjective Date of service: 10/23/21 Principal diagnosis: IUP@ 37.5wks, Preeclampsia Patient reports: loss of fluid, movement normal, other (denies CHANDLER, visual changes or epigastric pain), no new complaints (comfortable with epidural), no vaginal bleeding, no contractions Objective - Vital Signs Vital Signs: Vital Signs - 12hr 10/23/21 10/23/21 10/23/21 05:32 05:35 05:37 Temperature Pulse Rate 68 79 78 Respiratory Rate Blood Pressure O2 Sat by Pulse 83 L 92 87 Oximetry O2 Sat by Pulse Oximetry [ Bilateral Throughout] 10/23/21 10/23/21 10/23/21 05:41 05:42 05:46 Temperature Pulse Rate 75 75 87 Respiratory Rate Blood Pressure O2 Sat by Pulse 89 93 88 Oximetry O2 Sat by Pulse Oximetry [ Bilateral Throughout] 10/23/21 10/23/21 10/23/21 05:47 05:51 05:52 Temperature Pulse Rate 77 84 65 Respiratory Rate Blood Pressure O2 Sat by Pulse 89 89 97 Oximetry O2 Sat by Pulse Oximetry [ Bilateral Throughout] 10/23/21 10/23/21 10/23/21 05:57 06:02 06:07 Temperature Pulse Rate 64 72 69 Respiratory Rate Blood Pressure O2 Sat by Pulse 96 89 98 Oximetry O2 Sat by Pulse Oximetry [ Bilateral Throughout] 10/23/21 10/23/21 10/23/21 06:08 06:12 06:13 Temperature Pulse Rate 68 88 67 Respiratory Rate Blood Pressure O2 Sat by Pulse 88 80 L 88 Oximetry O2 Sat by Pulse Oximetry [ Bilateral Throughout] 10/23/21 10/23/21 10/23/21 06:17 06:18 06:22 Temperature Pulse Rate 69 74 63 Respiratory Rate Blood Pressure 137/63 O2 Sat by Pulse 91 88 98 Oximetry O2 Sat by Pulse Oximetry [ Bilateral Throughout] 10/23/21 10/23/21 10/23/21 06:23 06:27 06:29 Temperature Pulse Rate 78 63 79 Respiratory Rate Blood Pressure O2 Sat by Pulse 89 83 L 88 Oximetry O2 Sat by Pulse Oximetry [ Bilateral Throughout] 10/23/21 10/23/21 10/23/21 06:32 06:34 06:37 Temperature Pulse Rate 75 78 65 Respiratory Rate Blood Pressure O2 Sat by Pulse 91 89 93 Oximetry O2 Sat by Pulse Oximetry [ Bilateral Throughout] 10/23/21 10/23/21 10/23/21 06:39 06:42 06:45 Temperature Pulse Rate 81 78 86 Respiratory Rate Blood Pressure O2 Sat by Pulse 87 84 87 Oximetry O2 Sat by Pulse Oximetry [ Bilateral Throughout] 10/23/21 10/23/21 10/23/21 06:47 06:52 06:57 Temperature Pulse Rate 71 71 70 Respiratory Rate Blood Pressure O2 Sat by Pulse 99 100 98 Oximetry O2 Sat by Pulse Oximetry [ Bilateral Throughout] 10/23/21 10/23/21 10/23/21 07:02 07:06 07:07 Temperature 98.3 F Pulse Rate 68 74 Respiratory Rate Blood Pressure O2 Sat by Pulse 98 97 Oximetry O2 Sat by Pulse 97 Oximetry [ Bilateral Throughout] 10/23/21 10/23/21 10/23/21 07:12 07:17 07:22 Temperature Pulse Rate 74 79 68 Respiratory Rate Blood Pressure O2 Sat by Pulse 99 98 98 Oximetry O2 Sat by Pulse Oximetry [ Bilateral Throughout] 10/23/21 10/23/21 10/23/21 07:27 07:32 07:37 Temperature Pulse Rate 74 84 79 Respiratory Rate Blood Pressure O2 Sat by Pulse 98 97 98 Oximetry O2 Sat by Pulse Oximetry [ Bilateral Throughout] 10/23/21 10/23/21 10/23/21 07:42 07:47 09:03 Temperature Pulse Rate 71 74 69 Respiratory Rate Blood Pressure O2 Sat by Pulse 98 97 45 L Oximetry O2 Sat by Pulse Oximetry [ Bilateral Throughout] 10/23/21 10/23/21 10/23/21 09:09 09:15 09:27 Temperature Pulse Rate 65 62 Respiratory Rate Blood Pressure O2 Sat by Pulse 46 L 62 L 72 L Oximetry O2 Sat by Pulse Oximetry [ Bilateral Throughout] 10/23/21 10/23/21 10/23/21 09:41 09:45 09:46 Temperature Pulse Rate 103 H Respiratory Rate Blood Pressure O2 Sat by Pulse 94 59 L 61 L Oximetry O2 Sat by Pulse Oximetry [ Bilateral Throughout] 10/23/21 10/23/21 10/23/21 09:50 09:51 09:57 Temperature Pulse Rate 205 H Respiratory Rate Blood Pressure O2 Sat by Pulse 47 L 38 L 55 L Oximetry O2 Sat by Pulse Oximetry [ Bilateral Throughout] 10/23/21 10/23/21 10/23/21 10:03 10:04 10:08 Temperature Pulse Rate 94 H 77 89 Respiratory Rate Blood Pressure 145/84 O2 Sat by Pulse 99 96 Oximetry O2 Sat by Pulse Oximetry [ Bilateral Throughout] 10/23/21 10/23/21 10/23/21 10:10 10:13 10:18 Temperature Pulse Rate 86 80 92 H Respiratory Rate Blood Pressure O2 Sat by Pulse 94 95 97 Oximetry O2 Sat by Pulse Oximetry [ Bilateral Throughout] 10/23/21 10/23/21 10/23/21 10:22 10:23 10:28 Temperature Pulse Rate 83 85 80 Respiratory Rate Blood Pressure 125/70 O2 Sat by Pulse 98 98 Oximetry O2 Sat by Pulse Oximetry [ Bilateral Throughout] 10/23/21 10/23/21 10/23/21 10:33 10:38 10:43 Temperature Pulse Rate 88 79 81 Respiratory Rate Blood Pressure O2 Sat by Pulse 97 95 96 Oximetry O2 Sat by Pulse Oximetry [ Bilateral Throughout] 10/23/21 10/23/21 10/23/21 10:48 10:50 10:53 Temperature Pulse Rate 90 89 86 Respiratory Rate Blood Pressure O2 Sat by Pulse 97 94 95 Oximetry O2 Sat by Pulse Oximetry [ Bilateral Throughout] 10/23/21 10/23/21 10/23/21 10:55 10:58 11:01 Temperature Pulse Rate 78 86 86 Respiratory Rate Blood Pressure O2 Sat by Pulse 94 96 94 Oximetry O2 Sat by Pulse Oximetry [ Bilateral Throughout] 10/23/21 10/23/21 10/23/21 11:03 11:07 11:08 Temperature Pulse Rate 81 79 81 Respiratory Rate Blood Pressure O2 Sat by Pulse 97 94 96 Oximetry O2 Sat by Pulse Oximetry [ Bilateral Throughout] 10/23/21 10/23/21 10/23/21 11:13 11:15 11:18 Temperature 98.2 F Pulse Rate 77 77 Respiratory Rate Blood Pressure O2 Sat by Pulse 98 97 Oximetry O2 Sat by Pulse Oximetry [ Bilateral Throughout] 10/23/21 10/23/21 10/23/21 11:21 11:35 11:40 Temperature Pulse Rate 81 90 75 Respiratory Rate Blood Pressure 127/73 O2 Sat by Pulse 98 96 Oximetry O2 Sat by Pulse Oximetry [ Bilateral Throughout] 10/23/21 10/23/21 10/23/21 11:45 11:47 11:50 Temperature Pulse Rate 74 81 80 Respiratory Rate Blood Pressure O2 Sat by Pulse 97 94 97 Oximetry O2 Sat by Pulse Oximetry [ Bilateral Throughout] 10/23/21 10/23/21 10/23/21 11:55 11:57 12:00 Temperature Pulse Rate 81 79 80 Respiratory Rate Blood Pressure O2 Sat by Pulse 95 94 98 Oximetry O2 Sat by Pulse Oximetry [ Bilateral Throughout] 10/23/21 10/23/21 10/23/21 12:05 12:10 12:15 Temperature Pulse Rate 76 78 70 Respiratory Rate Blood Pressure O2 Sat by Pulse 96 92 98 Oximetry O2 Sat by Pulse Oximetry [ Bilateral Throughout] 10/23/21 10/23/21 10/23/21 12:16 12:20 12:24 Temperature Pulse Rate 80 71 81 Respiratory Rate Blood Pressure O2 Sat by Pulse 94 95 94 Oximetry O2 Sat by Pulse Oximetry [ Bilateral Throughout] 10/23/21 10/23/21 10/23/21 12:25 12:29 12:30 Temperature Pulse Rate 76 83 75 Respiratory Rate Blood Pressure O2 Sat by Pulse 97 93 94 Oximetry O2 Sat by Pulse Oximetry [ Bilateral Throughout] 10/23/21 10/23/21 10/23/21 12:35 12:40 12:41 Temperature Pulse Rate 71 76 75 Respiratory Rate Blood Pressure 140/89 O2 Sat by Pulse 98 95 Oximetry O2 Sat by Pulse Oximetry [ Bilateral Throughout] 10/23/21 10/23/21 10/23/21 12:42 12:45 12:48 Temperature Pulse Rate 91 H 74 76 Respiratory Rate Blood Pressure O2 Sat by Pulse 94 94 92 Oximetry O2 Sat by Pulse Oximetry [ Bilateral Throughout] 10/23/21 10/23/21 10/23/21 12:50 12:55 13:00 Temperature Pulse Rate 76 84 66 Respiratory Rate Blood Pressure O2 Sat by Pulse 91 91 98 Oximetry O2 Sat by Pulse Oximetry [ Bilateral Throughout] 10/23/21 10/23/21 10/23/21 13:05 13:06 13:10 Temperature Pulse Rate 69 80 68 Respiratory Rate Blood Pressure O2 Sat by Pulse 96 90 88 Oximetry O2 Sat by Pulse Oximetry [ Bilateral Throughout] 10/23/21 10/23/21 10/23/21 13:11 13:15 13:16 Temperature Pulse Rate 68 69 75 Respiratory Rate Blood Pressure O2 Sat by Pulse 91 98 91 Oximetry O2 Sat by Pulse Oximetry [ Bilateral Throughout] 10/23/21 10/23/21 10/23/21 13:20 13:21 13:22 Temperature Pulse Rate 72 86 92 H Respiratory Rate Blood Pressure 147/82 O2 Sat by Pulse 84 92 Oximetry O2 Sat by Pulse Oximetry [ Bilateral Throughout] 10/23/21 10/23/21 10/23/21 13:25 13:28 13:30 Temperature Pulse Rate 72 73 76 Respiratory Rate Blood Pressure O2 Sat by Pulse 98 94 96 Oximetry O2 Sat by Pulse Oximetry [ Bilateral Throughout] 10/23/21 10/23/21 10/23/21 13:33 13:35 13:38 Temperature Pulse Rate 69 71 68 Respiratory Rate Blood Pressure O2 Sat by Pulse 93 92 94 Oximetry O2 Sat by Pulse Oximetry [ Bilateral Throughout] 10/23/21 10/23/21 10/23/21 13:40 13:44 13:45 Temperature Pulse Rate 77 73 66 Respiratory Rate Blood Pressure O2 Sat by Pulse 91 92 91 Oximetry O2 Sat by Pulse Oximetry [ Bilateral Throughout] 10/23/21 10/23/21 10/23/21 13:50 14:01 14:06 Temperature Pulse Rate 64 79 72 Respiratory Rate Blood Pressure O2 Sat by Pulse 91 94 96 Oximetry O2 Sat by Pulse Oximetry [ Bilateral Throughout] 10/23/21 10/23/21 10/23/21 14:10 14:11 14:16 Temperature Pulse Rate 72 73 75 Respiratory Rate Blood Pressure O2 Sat by Pulse 94 97 96 Oximetry O2 Sat by Pulse Oximetry [ Bilateral Throughout] 10/23/21 10/23/2110/23/22 14:17 14:21 14:22 Temperature Pulse Rate 74 74 72 Respiratory Rate Blood Pressure 139/85 O2 Sat by Pulse 93 97 Oximetry O2 Sat by Pulse Oximetry [ Bilateral Throughout] 10/23/21 10/23/21 10/23/21 14:26 14:31 14:36 Temperature Pulse Rate 76 75 73 Respiratory Rate Blood Pressure O2 Sat by Pulse 97 97 97 Oximetry O2 Sat by Pulse Oximetry [ Bilateral Throughout] 10/23/21 10/23/21 10/23/21 14:41 14:46 14:51 Temperature Pulse Rate 79 70 74 Respiratory Rate Blood Pressure O2 Sat by Pulse 97 97 98 Oximetry O2 Sat by Pulse Oximetry [ Bilateral Throughout] 10/23/21 10/23/21 10/23/21 14:56 15:01 15:06 Temperature Pulse Rate 77 84 81 Respiratory Rate Blood Pressure O2 Sat by Pulse 100 99 97 Oximetry O2 Sat by Pulse Oximetry [ Bilateral Throughout] 10/23/21 10/23/21 10/23/21 15:11 15:15 15:16 Temperature Pulse Rate 86 78 Respiratory 14 Rate Blood Pressure O2 Sat by Pulse 97 96 Oximetry O2 Sat by Pulse Oximetry [ Bilateral Throughout] 10/23/21 10/23/21 10/23/21 15:19 15:21 15:23 Temperature Pulse Rate 90 86 76 Respiratory Rate Blood Pressure 142/89 O2 Sat by Pulse 90 96 Oximetry O2 Sat by Pulse Oximetry [ Bilateral Throughout] 10/23/21 10/23/21 10/23/21 15:26 15:31 15:36 Temperature Pulse Rate 84 75 70 Respiratory Rate Blood Pressure O2 Sat by Pulse 97 98 96 Oximetry O2 Sat by Pulse Oximetry [ Bilateral Throughout] 10/23/21 10/23/21 10/23/21 15:37 15:41 15:46 Temperature Pulse Rate 76 66 63 Respiratory Rate Blood Pressure O2 Sat by Pulse 93 98 99 Oximetry O2 Sat by Pulse Oximetry [ Bilateral Throughout] 10/23/21 10/23/21 10/23/21 15:50 15:51 15:56 Temperature Pulse Rate 67 73 67 Respiratory Rate Blood Pressure O2 Sat by Pulse 94 95 97 Oximetry O2 Sat by Pulse Oximetry [ Bilateral Throughout] 10/23/21 10/23/21 10/23/21 15:57 16:01 16:06 Temperature Pulse Rate 69 67 71 Respiratory Rate Blood Pressure O2 Sat by Pulse 94 99 97 Oximetry O2 Sat by Pulse Oximetry [ Bilateral Throughout] 10/23/21 10/23/21 10/23/21 16:11 16:16 16:21 Temperature Pulse Rate 60 72 Respiratory Rate Blood Pressure O2 Sat by Pulse 98 87 99 Oximetry O2 Sat by Pulse Oximetry [ Bilateral Throughout] 10/23/21 10/23/21 10/23/21 16:23 16:26 16:31 Temperature Pulse Rate 72 77 75 Respiratory Rate Blood Pressure 158/82 O2 Sat by Pulse 99 99 Oximetry O2 Sat by Pulse Oximetry [ Bilateral Throughout] 10/23/21 10/23/21 10/23/21 16:36 16:40 16:41 Temperature Pulse Rate 86 87 84 Respiratory Rate Blood Pressure 198/88 O2 Sat by Pulse 100 100 Oximetry O2 Sat by Pulse Oximetry [ Bilateral Throughout] 10/23/21 10/23/21 10/23/21 16:42 16:44 16:46 Temperature Pulse Rate 85 77 95 H Respiratory Rate Blood Pressure 165/101 168/82 184/107 O2 Sat by Pulse 100 Oximetry O2 Sat by Pulse Oximetry [ Bilateral Throughout] 10/23/21 10/23/21 10/23/21 16:48 16:50 16:51 Temperature Pulse Rate 101 H 87 88 Respiratory Rate Blood Pressure 195/91 183/86 O2 Sat by Pulse 100 Oximetry O2 Sat by Pulse Oximetry [ Bilateral Throughout] 10/23/21 10/23/21 10/23/21 16:52 16:54 16:56 Temperature Pulse Rate 92 H 97 H 102 H Respiratory Rate Blood Pressure 185/85 184/80 177/79 O2 Sat by Pulse 100 Oximetry O2 Sat by Pulse Oximetry [ Bilateral Throughout] 10/23/21 10/23/21 10/23/21 16:58 17:00 17:01 Temperature Pulse Rate 89 97 H 93 H Respiratory Rate Blood Pressure 183/76 179/81 O2 Sat by Pulse 99 Oximetry O2 Sat by Pulse Oximetry [ Bilateral Throughout] 10/23/21 10/23/21 10/23/21 17:02 17:06 17:07 Temperature Pulse Rate 92 H 84 88 Respiratory Rate Blood Pressure 170/84 134/89 O2 Sat by Pulse 98 Oximetry O2 Sat by Pulse Oximetry [ Bilateral Throughout] 10/23/21 10/23/21 10/23/21 17:08 17:10 17:11 Temperature Pulse Rate 169 H 82 78 Respiratory Rate Blood Pressure 141/88 137/71 O2 Sat by Pulse 98 Oximetry O2 Sat by Pulse Oximetry [ Bilateral Throughout] 10/23/21 10/23/21 10/23/21 17:16 17:21 17:26 Temperature Pulse Rate 81 80 79 Respiratory Rate Blood Pressure O2 Sat by Pulse 97 97 97 Oximetry O2 Sat by Pulse Oximetry [ Bilateral Throughout] - Exam Uterine Contraction Monitor Mode: Internal Cervical Dilatation: 3 (clear fluid) Cervical Effacement Percentage: 90 station: -3 Uterine Contraction Pattern: Regular Uterine Tone Measurement Phase: Contraction Uterine Contraction Intensity: Moderate Extremities: normal Deep Tendon Reflex Grade: Normal +2 - Labs Labs: Abnormal Labs 10/20/21 10/20/21 10/20/21 21:17 22:23 Unknown RBC 3.08 L Hgb 9.8 L Hct 27.1 L MCHC 36 H Potassium 3.1 L Creatinine 0.5 L Urine Creatinine Ur Total Protein 24 Hr 306.00 H Urine Total Protein 17 H Membranes Rupture 10/20/21 10/23/21 Unknown Unknown RBC Hgb Hct MCHC Potassium Creatinine Urine Creatinine 157.1 H Ur Total Protein 24 Hr Urine Total Protein 34 H Membranes Rupture Positive A Laboratory Results - last 24 hr 10/23/21 Unknown Membranes Rupture Positive A
--- NOTE | 2021-10-23 17:37 | Progress Note ---
Spinal Anesthesia Block - Spinal Anesthesia Block Start Time: 16:40 Stop Time: 17:01 Performed by:: MERVIN BOONE Procedure: Combined Spinal-Epidural Patient is requesting epidural for labor and pain. H&P, labs were reviewed. Patient ID confirmed, all questions and concerns were answered, and consent was signed. Timeout was performed at bedside. Patient in sitting position. Sterile prep and drape was performed. 3ml of 1% lidocaine skin wheal at L3- L4 interspace. 17-gauge Tuohy epidural needle was advanced to loss of resistance with saline technique cm. 25G spinal needle introduced through epidural needle to the spinal space. Clear CSF. Injected .1ml of Precedex in the spinal space. Negative CSF negative blood. Epidural catheter advanced to 15 centimeters. Negative aspiration, test dose 3ml 1.5% Lidocaine with epi - negative. Sterile dressing applied. Patient tolerated procedure.
[2021-10-23] MEDS ORDERED: NALOXONE 0.4 MG/1 ML INJ IV PRN (17:41)
[2021-10-23] MEDS ORDERED: ePHEDrine SULFATE 50 MG/1 ML INJ IV PRN (17:41)
[2021-10-23] MEDS ORDERED: fentaNYL-BUPIV 2 MCG/ML-0.125% 200 MCG/100 ML BAG EPIDURAL SCH (18:00)
--- NOTE | 2021-10-23 20:00 | Progress Note ---
Assessment and Plan FHT decel noted down to the 80's, SVE now 9.5/100/0 - anterior lip. pt denies feeling rectal pressure or urge to push at this time. Anticipate delivery shortly. - Patient Problems (1) Pre-eclampsia Current Visit: Yes Status: Acute Qualifiers: Trimester: third trimester Qualified Code(s): O14.93 - Unspecified pre- eclampsia, third trimester (2) 37 or more weeks gestation of Current Visit: Yes Status: Acute (3) Hx of herpes genitalis Current Visit: Yes Status: Acute Subjective - Subjective Date of service: 10/23/21 Principal diagnosis: IUP@ 37.5wks, Preeclampsia Patient reports: loss of fluid, movement normal, other (denies CHANDLER, visual changes or epigastric pain), no new complaints (comfortable with epidural), no vaginal bleeding, no contractions Objective - Vital Signs Vital Signs: Vital Signs - 12hr 10/23/21 10/23/21 10/23/21 09:03 09:09 09:15 Temperature Pulse Rate 69 65 Respiratory Rate Blood Pressure O2 Sat by Pulse 45 L 46 L 62 L Oximetry O2 Sat by Pulse Oximetry [ Bilateral Throughout] 10/23/21 10/23/21 10/23/21 09:27 09:41 09:45 Temperature Pulse Rate 62 103 H Respiratory Rate Blood Pressure O2 Sat by Pulse 72 L 94 59 L Oximetry O2 Sat by Pulse Oximetry [ Bilateral Throughout] 10/23/21 10/23/21 10/23/21 09:46 09:50 09:51 Temperature Pulse Rate 205 H Respiratory Rate Blood Pressure O2 Sat by Pulse 61 L 47 L 38 L Oximetry O2 Sat by Pulse Oximetry [ Bilateral Throughout] 10/23/21 10/23/21 10/23/21 09:57 10:03 10:04 Temperature Pulse Rate 94 H 77 Respiratory Rate Blood Pressure 145/84 O2 Sat by Pulse 55 L 99 Oximetry O2 Sat by Pulse Oximetry [ Bilateral Throughout] 10/23/21 10/23/21 10/23/21 10:08 10:10 10:13 Temperature Pulse Rate 89 86 80 Respiratory Rate Blood Pressure O2 Sat by Pulse 96 94 95 Oximetry O2 Sat by Pulse Oximetry [ Bilateral Throughout] 10/23/21 10/23/21 10/23/21 10:18 10:22 10:23 Temperature Pulse Rate 92 H 83 85 Respiratory Rate Blood Pressure 125/70 O2 Sat by Pulse 97 98 Oximetry O2 Sat by Pulse Oximetry [ Bilateral Throughout] 10/23/21 10/23/21 10/23/21 10:28 10:33 10:38 Temperature Pulse Rate 80 88 79 Respiratory Rate Blood Pressure O2 Sat by Pulse 98 97 95 Oximetry O2 Sat by Pulse Oximetry [ Bilateral Throughout] 10/23/21 10/23/21 10/23/21 10:43 10:48 10:50 Temperature Pulse Rate 81 90 89 Respiratory Rate Blood Pressure O2 Sat by Pulse 96 97 94 Oximetry O2 Sat by Pulse Oximetry [ Bilateral Throughout] 10/23/21 10/23/21 10/23/21 10:53 10:55 10:58 Temperature Pulse Rate 86 78 86 Respiratory Rate Blood Pressure O2 Sat by Pulse 95 94 96 Oximetry O2 Sat by Pulse Oximetry [ Bilateral Throughout] 10/23/21 10/23/21 10/23/21 11:01 11:03 11:07 Temperature Pulse Rate 86 81 79 Respiratory Rate Blood Pressure O2 Sat by Pulse 94 97 94 Oximetry O2 Sat by Pulse Oximetry [ Bilateral Throughout] 10/23/21 10/23/21 10/23/21 11:08 11:13 11:15 Temperature 98.2 F Pulse Rate 81 77 Respiratory Rate Blood Pressure O2 Sat by Pulse 96 98 Oximetry O2 Sat by Pulse Oximetry [ Bilateral Throughout] 10/23/21 10/23/21 10/23/21 11:18 11:21 11:35 Temperature Pulse Rate 77 81 90 Respiratory Rate Blood Pressure 127/73 O2 Sat by Pulse 97 98 Oximetry O2 Sat by Pulse Oximetry [ Bilateral Throughout] 10/23/21 10/23/21 10/23/21 11:40 11:45 11:47 Temperature Pulse Rate 75 74 81 Respiratory Rate Blood Pressure O2 Sat by Pulse 96 97 94 Oximetry O2 Sat by Pulse Oximetry [ Bilateral Throughout] 10/23/21 10/23/21 10/23/21 11:50 11:55 11:57 Temperature Pulse Rate 80 81 79 Respiratory Rate Blood Pressure O2 Sat by Pulse 97 95 94 Oximetry O2 Sat by Pulse Oximetry [ Bilateral Throughout] 10/23/21 10/23/21 10/23/21 12:00 12:05 12:10 Temperature Pulse Rate 80 76 78 Respiratory Rate Blood Pressure O2 Sat by Pulse 98 96 92 Oximetry O2 Sat by Pulse Oximetry [ Bilateral Throughout] 10/23/21 10/23/21 10/23/21 12:15 12:16 12:20 Temperature Pulse Rate 70 80 71 Respiratory Rate Blood Pressure O2 Sat by Pulse 98 94 95 Oximetry O2 Sat by Pulse Oximetry [ Bilateral Throughout] 10/23/21 10/23/21 10/23/21 12:24 12:25 12:29 Temperature Pulse Rate 81 76 83 Respiratory Rate Blood Pressure O2 Sat by Pulse 94 97 93 Oximetry O2 Sat by Pulse Oximetry [ Bilateral Throughout] 10/23/21 10/23/21 10/23/21 12:30 12:35 12:40 Temperature Pulse Rate 75 71 76 Respiratory Rate Blood Pressure O2 Sat by Pulse 94 98 95 Oximetry O2 Sat by Pulse Oximetry [ Bilateral Throughout] 10/23/21 10/23/21 10/23/21 12:41 12:42 12:45 Temperature Pulse Rate 75 91 H 74 Respiratory Rate Blood Pressure 140/89 O2 Sat by Pulse 94 94 Oximetry O2 Sat by Pulse Oximetry [ Bilateral Throughout] 10/23/21 10/23/21 10/23/21 12:48 12:50 12:55 Temperature Pulse Rate 76 76 84 Respiratory Rate Blood Pressure O2 Sat by Pulse 92 91 91 Oximetry O2 Sat by Pulse Oximetry [ Bilateral Throughout] 10/23/21 10/23/21 10/23/21 13:00 13:05 13:06 Temperature Pulse Rate 66 69 80 Respiratory Rate Blood Pressure O2 Sat by Pulse 98 96 90 Oximetry O2 Sat by Pulse Oximetry [ Bilateral Throughout] 10/23/21 10/23/21 10/23/21 13:10 13:11 13:15 Temperature Pulse Rate 68 68 69 Respiratory Rate Blood Pressure O2 Sat by Pulse 88 91 98 Oximetry O2 Sat by Pulse Oximetry [ Bilateral Throughout] 10/23/21 10/23/21 10/23/21 13:16 13:20 13:21 Temperature Pulse Rate 75 72 86 Respiratory Rate Blood Pressure O2 Sat by Pulse 91 84 92 Oximetry O2 Sat by Pulse Oximetry [ Bilateral Throughout] 10/23/21 10/23/21 10/23/21 13:22 13:25 13:28 Temperature Pulse Rate 92 H 72 73 Respiratory Rate Blood Pressure 147/82 O2 Sat by Pulse 98 94 Oximetry O2 Sat by Pulse Oximetry [ Bilateral Throughout] 10/23/21 10/23/21 10/23/21 13:30 13:33 13:35 Temperature Pulse Rate 76 69 71 Respiratory Rate Blood Pressure O2 Sat by Pulse 96 93 92 Oximetry O2 Sat by Pulse Oximetry [ Bilateral Throughout] 10/23/21 10/23/21 10/23/21 13:38 13:40 13:44 Temperature Pulse Rate 68 77 73 Respiratory Rate Blood Pressure O2 Sat by Pulse 94 91 92 Oximetry O2 Sat by Pulse Oximetry [ Bilateral Throughout] 10/23/21 10/23/21 10/23/21 13:45 13:50 14:01 Temperature Pulse Rate 66 64 79 Respiratory Rate Blood Pressure O2 Sat by Pulse 91 91 94 Oximetry O2 Sat by Pulse Oximetry [ Bilateral Throughout] 10/23/21 10/23/21 10/23/21 14:06 14:10 14:11 Temperature Pulse Rate 72 72 73 Respiratory Rate Blood Pressure O2 Sat by Pulse 96 94 97 Oximetry O2 Sat by Pulse Oximetry [ Bilateral Throughout] 10/23/21 10/23/21 10/23/21 14:16 14:17 14:21 Temperature Pulse Rate 75 74 74 Respiratory Rate Blood Pressure O2 Sat by Pulse 96 93 97 Oximetry O2 Sat by Pulse Oximetry [ Bilateral Throughout] 10/23/21 10/23/21 10/23/21 14:22 14:26 14:31 Temperature Pulse Rate 72 76 75 Respiratory Rate Blood Pressure 139/85 O2 Sat by Pulse 97 97 Oximetry O2 Sat by Pulse Oximetry [ Bilateral Throughout] 10/23/21 10/23/21 10/23/21 14:36 14:41 14:46 Temperature Pulse Rate 73 79 70 Respiratory Rate Blood Pressure O2 Sat by Pulse 97 97 97 Oximetry O2 Sat by Pulse Oximetry [ Bilateral Throughout] 10/23/21 10/23/21 10/23/21 14:51 14:56 15:00 Temperature 98.3 F Pulse Rate 74 77 Respiratory Rate Blood Pressure O2 Sat by Pulse 98 100 Oximetry O2 Sat by Pulse Oximetry [ Bilateral Throughout] 10/23/21 10/23/21 10/23/21 15:01 15:06 15:11 Temperature Pulse Rate 84 81 86 Respiratory Rate Blood Pressure O2 Sat by Pulse 99 97 97 Oximetry O2 Sat by Pulse Oximetry [ Bilateral Throughout] 10/23/21 10/23/21 10/23/21 15:15 15:16 15:19 Temperature Pulse Rate 78 90 Respiratory 14 Rate Blood Pressure O2 Sat by Pulse 96 90 Oximetry O2 Sat by Pulse Oximetry [ Bilateral Throughout] 10/23/21 10/23/21 10/23/21 15:21 15:23 15:26 Temperature Pulse Rate 86 76 84 Respiratory Rate Blood Pressure 142/89 O2 Sat by Pulse 96 97 Oximetry O2 Sat by Pulse Oximetry [ Bilateral Throughout] 10/23/21 10/23/21 10/23/21 15:31 15:36 15:37 Temperature Pulse Rate 75 70 76 Respiratory Rate Blood Pressure O2 Sat by Pulse 98 96 93 Oximetry O2 Sat by Pulse Oximetry [ Bilateral Throughout] 10/23/21 10/23/21 10/23/21 15:41 15:46 15:50 Temperature Pulse Rate 66 63 67 Respiratory Rate Blood Pressure O2 Sat by Pulse 98 99 94 Oximetry O2 Sat by Pulse Oximetry [ Bilateral Throughout] 10/23/21 10/23/21 10/23/21 15:51 15:56 15:57 Temperature Pulse Rate 73 67 69 Respiratory Rate Blood Pressure O2 Sat by Pulse 95 97 94 Oximetry O2 Sat by Pulse Oximetry [ Bilateral Throughout] 10/23/21 10/23/21 10/23/21 16:01 16:06 16:11 Temperature Pulse Rate 67 71 60 Respiratory Rate Blood Pressure O2 Sat by Pulse 99 97 98 Oximetry O2 Sat by Pulse Oximetry [ Bilateral Throughout] 10/23/21 10/23/21 10/23/21 16:15 16:16 16:21 Temperature Pulse Rate 72 Respiratory 18 Rate Blood Pressure O2 Sat by Pulse 87 99 Oximetry O2 Sat by Pulse Oximetry [ Bilateral Throughout] 10/23/21 10/23/21 10/23/21 16:23 16:26 16:31 Temperature Pulse Rate 72 77 75 Respiratory Rate Blood Pressure 158/82 O2 Sat by Pulse 99 99 Oximetry O2 Sat by Pulse Oximetry [ Bilateral Throughout] 10/23/21 10/23/21 10/23/21 16:36 16:40 16:41 Temperature Pulse Rate 86 87 84 Respiratory Rate Blood Pressure 198/88 O2 Sat by Pulse 100 100 Oximetry O2 Sat by Pulse Oximetry [ Bilateral Throughout] 10/23/21 10/23/21 10/23/21 16:42 16:44 16:46 Temperature Pulse Rate 85 77 95 H Respiratory Rate Blood Pressure 165/101 168/82 184/107 O2 Sat by Pulse 100 Oximetry O2 Sat by Pulse Oximetry [ Bilateral Throughout] 10/23/21 10/23/21 10/23/21 16:48 16:50 16:51 Temperature Pulse Rate 101 H 87 88 Respiratory Rate Blood Pressure 195/91 183/86 O2 Sat by Pulse 100 Oximetry O2 Sat by Pulse Oximetry [ Bilateral Throughout] 10/23/21 10/23/21 10/23/21 16:52 16:54 16:56 Temperature Pulse Rate 92 H 97 H 102 H Respiratory Rate Blood Pressure 185/85 184/80 177/79 O2 Sat by Pulse 100 Oximetry O2 Sat by Pulse Oximetry [ Bilateral Throughout] 10/23/21 10/23/21 10/23/21 16:58 17:00 17:01 Temperature Pulse Rate 89 97 H 93 H Respiratory Rate Blood Pressure 183/76 179/81 O2 Sat by Pulse 99 Oximetry O2 Sat by Pulse Oximetry [ Bilateral Throughout] 10/23/21 10/23/21 10/23/21 17:02 17:06 17:07 Temperature Pulse Rate 92 H 84 88 Respiratory Rate Blood Pressure 170/84 134/89 O2 Sat by Pulse 98 Oximetry O2 Sat by Pulse Oximetry [ Bilateral Throughout] 10/23/21 10/23/21 10/23/21 17:08 17:10 17:11 Temperature Pulse Rate 169 H 82 78 Respiratory Rate Blood Pressure 141/88 137/71 O2 Sat by Pulse 98 Oximetry O2 Sat by Pulse Oximetry [ Bilateral Throughout] 10/23/21 10/23/21 10/23/21 17:16 17:21 17:26 Temperature Pulse Rate 81 80 79 Respiratory Rate Blood Pressure O2 Sat by Pulse 97 97 97 Oximetry O2 Sat by Pulse Oximetry [ Bilateral Throughout] 10/23/21 10/23/21 10/23/21 17:30 17:31 17:36 Temperature Pulse Rate 74 89 77 Respiratory Rate Blood Pressure 133/68 O2 Sat by Pulse 96 98 Oximetry O2 Sat by Pulse Oximetry [ Bilateral Throughout] 10/23/21 10/23/21 10/23/21 17:41 17:44 17:45 Temperature Pulse Rate 72 72 69 Respiratory Rate Blood Pressure 111/62 O2 Sat by Pulse 96 94 Oximetry O2 Sat by Pulse Oximetry [ Bilateral Throughout] 10/23/21 10/23/21 10/23/21 17:46 17:50 17:51 Temperature Pulse Rate 70 66 73 Respiratory Rate Blood Pressure O2 Sat by Pulse 94 94 91 Oximetry O2 Sat by Pulse Oximetry [ Bilateral Throughout] 10/23/21 10/23/21 10/23/21 17:55 17:56 17:59 Temperature Pulse Rate 72 62 67 Respiratory Rate Blood Pressure 105/61 O2 Sat by Pulse 93 91 Oximetry O2 Sat by Pulse Oximetry [ Bilateral Throughout] 10/23/21 10/23/21 10/23/21 18:01 18:06 18:11 Temperature Pulse Rate 69 68 64 Respiratory Rate Blood Pressure O2 Sat by Pulse 93 94 93 Oximetry O2 Sat by Pulse Oximetry [ Bilateral Throughout] 10/23/21 10/23/21 10/23/21 18:16 18:21 18:22 Temperature Pulse Rate 65 68 63 Respiratory Rate Blood Pressure O2 Sat by Pulse 92 93 94 Oximetry O2 Sat by Pulse Oximetry [ Bilateral Throughout] 10/23/21 10/23/21 10/23/21 18:26 18:28 18:30 Temperature Pulse Rate 64 66 63 Respiratory Rate Blood Pressure 105/59 O2 Sat by Pulse 93 94 Oximetry O2 Sat by Pulse Oximetry [ Bilateral Throughout] 10/23/21 10/23/21 10/23/21 18:31 18:33 18:36 Temperature Pulse Rate 71 78 63 Respiratory Rate Blood Pressure O2 Sat by Pulse 91 93 98 Oximetry O2 Sat by Pulse Oximetry [ Bilateral Throughout] 10/23/21 10/23/21 10/23/21 18:38 18:41 18:44 Temperature Pulse Rate 74 64 70 Respiratory Rate Blood Pressure O2 Sat by Pulse 92 93 94 Oximetry O2 Sat by Pulse Oximetry [ Bilateral Throughout] 10/23/21 10/23/21 10/23/21 18:46 18:50 18:51 Temperature Pulse Rate 66 76 70 Respiratory Rate Blood Pressure O2 Sat by Pulse 92 93 94 Oximetry O2 Sat by Pulse Oximetry [ Bilateral Throughout] 10/23/21 10/23/21 10/23/21 18:56 18:57 19:00 Temperature Pulse Rate 71 72 66 Respiratory Rate Blood Pressure 116/69 O2 Sat by Pulse 97 92 Oximetry O2 Sat by Pulse 98 Oximetry [ Bilateral Throughout] 10/23/21 10/23/21 10/23/21 19:01 19:02 19:06 Temperature Pulse Rate 64 68 66 Respiratory Rate Blood Pressure O2 Sat by Pulse 90 93 90 Oximetry O2 Sat by Pulse Oximetry [ Bilateral Throughout] 10/23/21 10/23/21 10/23/21 19:07 19:11 19:13 Temperature Pulse Rate 67 67 65 Respiratory Rate Blood Pressure O2 Sat by Pulse 91 94 94 Oximetry O2 Sat by Pulse Oximetry [ Bilateral Throughout] 10/23/21 10/23/21 10/23/21 19:16 19:21 19:26 Temperature Pulse Rate 69 72 67 Respiratory Rate Blood Pressure O2 Sat by Pulse 93 99 98 Oximetry O2 Sat by Pulse Oximetry [ Bilateral Throughout] 10/23/21 10/23/21 10/23/21 19:31 19:36 19:41 Temperature Pulse Rate 72 69 71 Respiratory Rate Blood Pressure O2 Sat by Pulse 99 98 100 Oximetry O2 Sat by Pulse Oximetry [ Bilateral Throughout] 10/23/21 19:46 Temperature Pulse Rate 82 Respiratory Rate Blood Pressure O2 Sat by Pulse 100 Oximetry O2 Sat by Pulse Oximetry [ Bilateral Throughout] - Exam Cardiovascular: Regular rate Lungs: Normal air movement Abdomen: Present: normal appearance, soft Vulva: both: normal FHR: category 1 Uterine Contraction Monitor Mode: Internal Cervical Dilatation: 9.5 Cervical Effacement Percentage: 100 station: 0 Uterine Contraction Frequency (min): 3-4 Uterine Contraction Duration: 60 Uterine Contraction Pattern: Regular Uterine Tone Measurement Phase: Contraction Uterine Contraction Intensity: Strong/Firm - Labs Labs: Abnormal Labs 10/20/21 10/20/21 10/20/21 21:17 22:23 Unknown RBC 3.08 L Hgb 9.8 L Hct 27.1 L MCHC 36 H Potassium 3.1 L Creatinine 0.5 L Urine Creatinine Ur Total Protein 24 Hr 306.00 H Urine Total Protein 17 H Membranes Rupture 10/20/21 10/23/21 Unknown Unknown RBC Hgb Hct MCHC Potassium Creatinine Urine Creatinine 157.1 H Ur Total Protein 24 Hr Urine Total Protein 34 H Membranes Rupture Positive A Laboratory Results - last 24 hr 10/23/21 Unknown Membranes Rupture Positive A
--- NOTE | 2021-10-23 21:15 | Procedure Note ---
OB Delivery Note - Delivery Date of Delivery: 10/23/21 Associate Professor Of Management: NEYDA WILCOX (Elena Pichardo [facility]) Estimated blood loss: other (250mL) - Vaginal Delivery presentation: vertex Delivery position: OA Intrapartum events: preeclampsia Delivery induction: cervidil Delivery augmentation: pitocin Delivery monitor: external FHT, external uterine, internal uterine Route of delivery: Delivery placenta: spontaneous Delivery cord: nuchal cord, true knot, 3 umbilical vessels Episiotomy: none Delivery laceration: other (labial abrasions, hemostatic not repaired ) Anesthesia: epidural Delivery comments: Repeat early decelerations noted. SVE: c/c/+2. Pushing initiated with contractions. of vigorous male , immediately placed skin to skin with maternal abdomen, cord clamped and cut by FOB after 2+ minutes with signs of placental separation. APGARS 8/9, 3110g. pitocin started. Intact delivery of [place] placenta. Perineum revealed bilateral labial abrasions, hemostatic and not repaired. Continued vaginal bleeding, cytotec placed [place]. Fundus remains firm, midline, @u/u, bleeding moderate without clots following uterine expression. QBL: 250ml. Counts performed x2 and correct x2, verified with primary RN. Infant latched to left breast, LATCH score: 6/8. Magnesium to be started now. Maternal dyad left in stable condition for recovery in the care of BERNABE and primary RN @[id number]. - A at 1 minute: 8 ([place], weight: 3110g) at 5 minutes: 9 Infant Gender: Male (6#11oz)
[2021-10-23] MEDS ORDERED: LACTATED RINGERS 1,000 ML IV SCH (21:20)
[2021-10-23] MEDS ORDERED: WITCH HAZEL/ GLYCERIN PAD TP PRN (21:20)
[2021-10-23] MEDS ORDERED: MAGNESIUM SULFATE 4 GM/100 ML BAG IV ONE (21:20)
[2021-10-23] MEDS ORDERED: diphenhydrAMINE 25 MG CAP PO PRN (21:20)
[2021-10-23] MEDS ORDERED: MAGNESIUM HYDROXIDE (MOM) ORAL LIQD UDC PO PRN (21:20)
[2021-10-23] MEDS ORDERED: BENZOCAINE/MENTHOL 20/0.5% TOP SPRAY 56 GM TP PRN (21:20)
[2021-10-23] MEDS ORDERED: ONDANSETRON 4 MG/2 ML INJ IV PRN (21:20)
[2021-10-23] MEDS ORDERED: PROMETHAZINE 25 MG TAB PO PRN (21:20)
[2021-10-23] MEDS ORDERED: LANOLIN/ZINC/DIMETHICONE (LANSINOH) 7 GM TP PRN (21:20)
[2021-10-23] MEDS ORDERED: MAGNESIUM SULFATE 40GM/1000ML 40 GM/1,000 ML BAG IV SCH (22:00)
[2021-10-23] MEDS: SERTRALINE 25 MG TAB PO SCH (23:47)
[2021-10-23] MEDS: IBUPROFEN 800 MG TAB PO SCH (23:47)
[2021-10-23] MEDS: DOCUSATE SODIUM 100 MG CAP PO SCH (23:48)
[2021-10-23] MEDS: FERROUS SULFATE 325 MG TAB PO SCH (23:48)
[2021-10-24] MEDS: IBUPROFEN 800 MG TAB PO SCH ×3 (05:07→17:52)
[2021-10-24] MEDS ORDERED: oxyCODONE /ACETAMINOPHEN 5-325MG TAB PO PRN (07:52)
[2021-10-24] MEDS ORDERED: ACETAMINOPHEN 500 MG TAB PO PRN (07:52)
--- NOTE | 2021-10-24 08:14 | Progress Note ---
Assessment and Plan A: 41 y.o. s/p , pre eclampsia. - Patient Problems (1) (normal spontaneous vaginal delivery) Current Visit: Yes Status: Acute Plan to address problem: Continue with care on labor and delivery until mag turned off. (2) Pre-eclampsia Current Visit: Yes Status: Acute Plan to address problem: Continue with magnesium infusion. - d/t be turned off @ 2130. Continue to monitor for worsening s/sx of pre eclampsia. Continue to monitor blood pressures. - If blood pressures remain stable, may send to mother/baby when mag is d/t be turned off. Subjective - Subjective Date of service: 10/24/21 Principal diagnosis: s/p , pre eclampsia, mag infusion Interval history: Pt denies CHANDLER, blurred vision, spots before her eyes, chest pain, upper abdominal pain, and shortness of breath. Patient reports: appetite normal, voiding normally, pain well controlled, ambulating normally : doing well Objective - Vital Signs Latest vital signs: Vital Signs Temp Pulse Resp BP BP Pulse Ox Pulse Ox 10/24/21 08:06 72 99 10/24/21 08:01 94 H 98 10/24/21 07:56 78 97 10/24/21 07:52 98 10/24/21 07:51 76 99 10/24/21 07:49 98.3 F 16 10/24/21 07:46 62 98 10/24/21 07:43 67 93 10/24/21 07:42 61 132/68 10/24/21 07:41 66 98 10/24/21 07:36 64 97 10/24/21 07:31 67 143/72 96 10/24/21 07:26 77 96 10/24/21 07:21 74 98 10/24/21 07:16 73 98 10/24/21 07:11 78 98 10/24/21 07:06 77 97 10/24/21 07:01 79 97 10/24/21 06:56 75 96 10/24/21 06:51 64 97 10/24/21 06:46 71 97 10/24/21 06:41 65 97 10/24/21 06:36 64 18 156/71 156/71 96 10/24/21 06:32 65 183/86 10/24/21 06:31 61 95 10/24/21 06:26 66 97 10/24/21 06:21 64 98 06 06:16 66 98 10/24/21 06:11 67 99 06 06:06 70 100 10/24/21 06:01 69 99 10/24/21 05:56 57 L 97 10/24/21 05:55 60 94 10/24/21 05:51 64 91 10/24/21 05:49 61 92 06 05:46 71 92 10/24/21 05:44 70 91 10/24/21 05:41 81 81 L 10/24/21 05:39 63 91 06 05:36 61 95 06 05:33 62 90 06 05:31 63 16 138/75 138/75 95 10/24/21 05:28 61 90 10/24/21 05:26 63 99 10/24/21 05:23 70 92 10/24/21 05:21 60 89 10/24/21 05:17 68 93 10/24/21 05:16 62 95 10/24/21 05:11 72 92 10/24/21 05:06 69 98 10/24/21 05:01 61 95 10/24/21 04:57 62 94 10/24/21 04:56 64 95 10/24/21 04:51 63 98 10/24/21 04:46 66 97 10/24/21 04:41 63 97 10/24/21 04:36 65 99 10/24/21 04:31 62 135/73 97 10/24/21 04:26 65 97 10/24/21 04:22 98.1 F 66 18 135/69 135/69 97 10/24/21 04:21 72 99 10/24/21 04:16 64 97 10/24/21 04:11 66 98 10/24/21 04:06 66 98 06 04:01 65 98 10/24/21 03:57 73 94 10/24/21 03:56 67 95 10/24/21 03:51 67 96 10/24/21 03:46 62 96 10/24/21 03:41 65 98 06 03:36 65 98 06 03:31 71 97 10/24/21 03:26 65 98 10/24/21 03:21 77 98 10/24/21 03:16 77 97 10/24/21 03:11 74 97 10/24/21 03:08 98.2 F 78 18 135/90 135/90 98 98 10/24/21 03:06 76 97 10/24/21 03:01 73 98 10/24/21 02:56 73 97 10/24/21 02:51 74 97 10/24/21 02:46 73 97 10/24/21 02:41 80 97 10/24/21 02:36 69 98 06 02:35 69 94 10/24/21 02:31 69 95 10/24/21 02:26 68 97 10/24/21 02:21 68 97 10/24/21 02:16 71 98 10/24/21 02:11 69 98 10/24/21 02:06 72 98 10/24/21 02:01 75 97 10/24/21 01:56 78 97 10/24/21 01:51 84 98 10/24/21 01:46 73 98 10/24/21 01:41 83 98 10/24/21 01:36 77 98 10/24/21 01:31 73 16 122/62 122/62 98 10/24/21 01:29 77 90 06 01:26 69 96 10/24/21 01:24 72 94 10/24/21 01:21 70 91 10/24/21 01:18 78 89 10/24/21 01:16 68 96 10/24/21 01:13 71 92 10/24/21 01:11 70 98 10/24/21 01:08 74 92 10/24/21 01:06 89 93 10/24/21 01:02 74 94 10/24/21 01:01 69 97 10/24/21 00:56 72 94 10/24/21 00:51 73 97 04 00:46 73 96 0604 00:41 74 96 06 00:36 74 95 06 00:31 74 95 10/24/21 00:27 82 93 06 00:26 77 97 0604 00:21 79 96 06 00:16 74 97 10/24/21 00:14 76 18 142/63 142/63 97 97 06/04/22 00:11 82 96 10/24/21 00:06 78 98 10/24/21 00:01 80 97 06 23:56 78 98 10/23/21 23:51 79 97 10/23/21 23:47 98.0 F 91 H 18 127/60 97 97 10/23/21 23:46 76 97 10/23/21 23:43 91 H 127/60 10/23/21 23:41 83 97 10/23/21 23:36 80 97 10/23/21 23:31 77 97 10/23/21 23:26 87 96 10/23/21 23:21 85 98 10/23/21 23:16 83 97 10/23/21 23:12 80 136/62 10/23/21 23:11 82 98 10/23/21 23:06 82 97 10/23/21 23:01 82 98 10/23/21 22:58 88 141/62 10/23/21 22:56 83 96 10/23/21 22:51 87 98 10/23/21 22:46 80 97 10/23/21 22:43 84 129/60 10/23/21 22:41 90 98 10/23/21 22:36 85 97 10/23/21 22:31 80 97 10/23/21 22:26 76 98 10/23/21 22:21 79 97 10/23/21 22:16 77 97 10/23/21 22:12 84 128/74 10/23/21 22:11 76 98 10/23/21 22:06 79 99 10/23/21 22:01 77 96 10/23/21 21:58 82 120/68 10/23/21 21:56 77 99 10/23/21 21:51 69 98 10/23/21 21:46 84 98 10/23/21 21:42 89 124/67 10/23/21 21:41 85 100 10/23/21 21:36 92 H 99 10/23/21 21:31 95 H 97 10/23/21 21:27 82 135/75 10/23/21 21:26 84 98 10/23/21 21:21 96 H 97 10/23/21 21:16 85 99 10/23/21 21:11 83 97 10/23/21 21:06 80 97 0603/22 21:01 83 97 10/23/21 20:56 110 H 99 10/23/21 20:51 93 H 100 10/23/21 20:46 83 95 10/23/21 20:42 80 83 L 10/23/21 20:41 95 H 97 10/23/21 20:36 104 H 90 10/23/21 20:31 82 142/111 99 10/23/21 20:26 96 H 100 10/23/21 20:21 76 100 10/23/21 20:16 68 100 10/23/21 20:11 70 100 10/23/21 20:06 70 100 10/23/21 20:01 96 H 88 10/23/21 20:00 69 135/77 10/23/21 19:56 75 100 10/23/21 19:51 75 100 10/23/21 19:50 98.5 F 79 18 100 10/23/21 19:46 82 100 10/23/21 19:41 71 100 10/23/21 19:36 69 98 10/23/21 19:31 72 99 10/23/21 19:26 67 98 10/23/21 19:21 72 99 10/23/21 19:16 69 93 10/23/21 19:13 65 94 10/23/21 19:11 67 94 10/23/21 19:07 67 91 10/23/21 19:06 66 90 10/23/21 19:02 68 93 10/23/21 19:01 64 90 10/23/21 19:00 66 116/69 98 10/23/21 18:57 72 92 10/23/21 18:56 71 97 10/23/21 18:51 70 94 10/23/21 18:50 76 93 10/23/21 18:46 66 92 10/23/21 18:44 70 94 10/23/21 18:41 64 93 10/23/21 18:38 74 92 10/23/21 18:36 63 98 10/23/21 18:33 78 93 10/23/21 18:31 71 91 10/23/21 18:30 63 105/59 10/23/21 18:28 66 94 10/23/21 18:26 64 93 10/23/21 18:22 63 94 10/23/21 18:21 68 93 06/03/22 18:16 65 92 10/23/21 18:11 64 93 10/23/21 18:06 68 94 10/23/21 18:01 69 93 10/23/21 17:59 67 105/61 10/23/21 17:56 62 91 10/23/21 17:55 72 93 10/23/21 17:51 73 91 10/23/21 17:50 66 94 10/23/21 17:46 70 94 10/23/21 17:45 69 111/62 10/23/21 17:44 72 94 10/23/21 17:41 72 96 10/23/21 17:36 77 98 10/23/21 17:31 89 96 10/23/21 17:30 74 133/68 10/23/21 17:26 79 97 10/23/21 17:21 80 97 10/23/21 17:16 81 97 10/23/21 17:11 78 98 10/23/21 17:10 82 137/71 10/23/21 17:08 169 H 141/88 10/23/21 17:07 88 134/89 10/23/21 17:06 84 98 10/23/21 17:02 92 H 170/84 10/23/21 17:01 93 H 99 10/23/21 17:00 97 H 179/81 10/23/21 16:58 89 183/76 10/23/21 16:56 102 H 177/79 100 10/23/21 16:54 97 H 184/80 10/23/21 16:52 92 H 185/85 10/23/21 16:51 88 100 10/23/21 16:50 87 183/86 10/23/21 16:48 101 H 195/91 10/23/21 16:46 95 H 184/107 100 10/23/21 16:44 77 168/82 10/23/21 16:42 85 165/101 10/23/21 16:41 84 100 10/23/21 16:40 87 198/88 10/23/21 16:36 86 100 10/23/21 16:31 75 99 10/23/21 16:26 77 99 10/23/21 16:23 72 158/82 10/23/21 16:21 72 99 10/23/21 16:16 87 06/22 16:15 18 10/23/21 16:11 60 98 10/23/21 16:06 71 97 10/23/21 16:01 67 99 10/23/21 15:57 69 94 10/23/21 15:56 67 97 10/23/21 15:51 73 95 10/23/21 15:50 67 94 10/23/21 15:46 63 99 10/23/21 15:41 66 98 10/23/21 15:37 76 93 10/23/21 15:36 70 96 10/23/21 15:31 75 98 10/23/21 15:26 84 97 10/23/21 15:23 76 142/89 10/23/21 15:21 86 96 10/23/21 15:19 90 90 10/23/21 15:16 78 96 10/23/21 15:15 14 10/23/21 15:11 86 97 10/23/21 15:06 81 97 10/23/21 15:01 84 99 10/23/21 15:00 98.3 F 10/23/21 14:56 77 100 10/23/21 14:51 74 98 10/23/21 14:46 70 97 10/23/21 14:41 79 97 10/23/21 14:36 73 97 10/23/21 14:31 75 97 10/23/21 14:26 76 97 10/23/21 14:22 72 139/85 10/23/21 14:21 74 97 10/23/21 14:17 74 93 10/23/21 14:16 75 96 10/23/21 14:11 73 97 10/23/21 14:10 72 94 10/23/21 14:06 72 96 10/23/21 14:01 79 94 10/23/21 13:50 64 91 10/23/21 13:45 66 91 10/23/21 13:44 73 92 10/23/21 13:40 77 91 10/23/21 13:38 68 94 10/23/21 13:35 71 92 10/23/21 13:33 69 93 10/23/21 13:30 76 96 10/23/21 13:28 73 94 10/23/21 13:25 72 98 10/23/21 13:22 92 H 147/82 10/23/21 13:21 86 92 10/23/21 13:20 72 84 10/23/21 13:16 75 91 10/23/21 13:15 69 98 10/23/21 13:11 68 91 10/23/21 13:10 68 88 10/23/21 13:06 80 90 10/23/21 13:05 69 96 10/23/21 13:00 66 98 10/23/21 12:55 84 91 10/23/21 12:50 76 91 10/23/21 12:48 76 92 10/23/21 12:45 74 94 10/23/21 12:42 91 H 94 10/23/21 12:41 75 140/89 10/23/21 12:40 76 95 10/23/21 12:35 71 98 10/23/21 12:30 75 94 10/23/21 12:29 83 93 10/23/21 12:25 76 97 10/23/21 12:24 81 94 10/23/21 12:20 71 95 10/23/21 12:16 80 94 10/23/21 12:15 70 98 10/23/21 12:10 78 92 10/23/21 12:05 76 96 10/23/21 12:00 80 98 10/23/21 11:57 79 94 10/23/21 11:55 81 95 10/23/21 11:50 80 97 10/23/21 11:47 81 94 10/23/21 11:45 74 97 10/23/21 11:40 75 96 10/23/21 11:35 90 98 10/23/21 11:21 81 127/73 10/23/21 11:18 77 97 10/23/21 11:15 98.2 F 10/23/21 11:13 77 98 10/23/21 11:08 81 96 10/23/21 11:07 79 94 06 11:03 81 97 10/23/21 11:01 86 94 10/23/21 10:58 86 96 10/23/21 10:55 78 94 10/23/21 10:53 86 95 10/23/21 10:50 89 94 10/23/21 10:48 90 97 10/23/21 10:43 81 96 10/23/21 10:38 79 95 10/23/21 10:33 88 97 10/23/21 10:28 80 98 10/23/21 10:23 85 98 10/23/21 10:22 83 125/70 10/23/21 10:18 92 H 97 10/23/21 10:13 80 95 10/23/21 10:10 86 94 10/23/21 10:08 89 96 10/23/21 10:04 77 145/84 10/23/21 10:03 94 H 99 10/23/21 09:57 55 L 10/23/21 09:51 38 L 10/23/21 09:50 205 H 47 L 10/23/21 09:46 61 L 10/23/21 09:45 59 L 10/23/21 09:41 103 H 94 10/23/21 09:27 62 72 L 10/23/21 09:15 62 L 10/23/21 09:09 65 46 L 10/23/21 09:03 69 45 L Intake and Output 10/23/21 10/24/21 10/24/21 22:59 06:59 14:59 Intake Total 987.55 660 Output Total 600 5500 Balance 387.55 -4840 Intake: IV 987.55 Lactated Ringers 1,000 ml 956.25 @ 125 mls/hr IV DIRECT ADALID Rx#:[id number] PITOCin/NS 30 UNIT/500ML 31.3 30,000 milliunits In 500 ml @ 1 MILLIUNITS/MIN 1 mls/hr IV DIRECT ONE Rx#:[id number] Oral 660 Output: Urine 600 5500 Indwelling Catheter 400 2700 Uretheral (Francis) 200 2800 Other: Total, Intake Amount 100 Total, Output Amount 200 500 Estimated Blood Loss 250 - Exam Narrative Exam: Francis draining clear yellow urine. Adequate I &O's. Blood pressure ranges have been 120's-140's/60-80's. There were a few severely elevated blood pressures were noted, but per RN pt was moving around and breast feeding her baby. Cardiovascular: Present: Normal S1, Normal S2 Lungs: Present: Clear to auscultation Abdomen: Present: normal appearance, soft Vulva: both: normal Uterus: Present: normal, firm Extremities: Present: normal Deep Tendon Reflex Grade: Normal +2 - Labs Labs: Abnormal lab results 10/23/21 Range/Units Unknown Membranes Rupture Positive A (Negative)
[2021-10-24 10:10] LABS: Hematocrit 26.8 % (30.3-42.9); Hemoglobin 9.2 gm/dl (10.1-14.3)
[2021-10-24] MEDS: PRENATAL VIT27-FE FUMARATE-FOLIC ACID VIT TAB PO SCH (10:32)
[2021-10-24] MEDS: SERTRALINE 25 MG TAB PO SCH (10:32)
[2021-10-24] MEDS: DOCUSATE SODIUM 100 MG CAP PO SCH ×2 (10:33→21:41)
[2021-10-24] MEDS: FERROUS SULFATE 325 MG TAB PO SCH ×2 (10:33→21:41)
--- NOTE | 2021-10-24 12:46 | Post Anesthesia Evaluation ---
- Post Anesthesia Evaluation Patient Participated: Yes Airway Patent: Yes Stable Respiratory Function: Yes Nausea/Vomiting: No Temp > 96.8F: Yes Pain Manageable: Yes Adequeate Hydration: Yes Anesthesia Complications: No Block Receding Appropriately: Yes (Patient has ambulated, consumed solids and/or fluids. No pain, redness, or swelling at site. Block is receding appropriately. Pt has no complaints or questions regarding anesthesia.)
--- NOTE | 2021-10-24 18:12 | Event Note ---
Date: 10/24/21 Was asked to come and speak to patient because they had questions about discharge home. Her blood pressure ranges have been 120's-170's/60-80's. Per RN, a few of the high blood pressures have been when the patient is breast feeding. A few high blood pressures noted when she is not breast feeding. She denies CHANDLER, blurred vision, spots before her eyes, chest pain, blurred vision, and upper abdominal pain. We discussed the need to stay to watch her blood pressures, for 24 hours after magnesium has stopped. We also discussed the mortality, such as and seizures, are increased within the 48 hours following delivery. Pt would like to be discharged home tomorrow evening if possible. Explained we will be starting her on Labetalol to help lower her blood pressures and if her blood pressures are WNL and she is asymptomatic, she may be discharged home with close follow up in the office. Pt and verbalized understanding. Will continue to monitor blood pressures. Magnesium infusion to be turned off at 2130. Patient can be transferred to mother baby if blood pressures remain stable.
[2021-10-24] MEDS ORDERED: ZOLPIDEM 5 MG TAB PO PRN (18:15)
[2021-10-25] MEDS: IBUPROFEN 800 MG TAB PO SCH ×2 (01:22→08:35)
--- NOTE | 2021-10-25 08:26 | Progress Note ---
Assessment and Plan - Patient Problems (1) (normal spontaneous vaginal delivery) Current Visit: Yes Status: Acute (2) Pre-eclampsia Current Visit: Yes Status: Acute Subjective - Subjective Date of service: 10/25/21 Principal diagnosis: s/p , pre eclampsia, mag infusion Patient reports: appetite normal, voiding normally, pain well controlled, flatus, ambulating normally [place]: doing well Objective - Vital Signs Latest vital signs: Vital Signs Temp Pulse Resp BP BP Pulse Ox Pulse Ox 10/25/21 07:18 98.0 F 66 18 115/68 92 10/25/21 04:19 98.0 F 66 18 131/76 99 10/24/21 22:20 98.3 F 67 18 126/74 98 98 10/24/21 21:41 80 143/84 97 10/24/21 21:40 98 10/24/21 21:36 78 96 10/24/21 21:31 80 97 10/24/21 21:26 83 97 10/24/21 21:21 74 98 10/24/21 21:18 70 143/84 10/24/21 21:16 72 98 10/24/21 21:11 68 98 10/24/21 21:06 73 97 10/24/21 21:01 75 97 10/24/21 20:56 70 98 10/24/21 20:51 67 99 10/24/21 20:46 72 98 10/24/21 20:41 75 97 10/24/21 20:36 74 98 10/24/21 20:31 71 99 10/24/21 20:26 72 98 10/24/21 20:21 68 98 10/24/21 20:19 69 170/80 10/24/21 20:16 74 98 10/24/21 20:11 74 97 10/24/21 20:06 74 98 10/24/21 20:01 79 99 10/24/21 19:59 64 159/82 10/24/21 19:56 69 98 10/24/21 19:54 98.9 F 64 18 159/82 98 10/24/21 19:51 71 98 10/24/21 19:50 98 10/24/21 19:34 68 98 10/24/21 19:29 72 98 10/24/21 19:24 66 98 06/04/22 19:19 69 98 10/24/21 19:18 68 140/74 10/24/21 19:14 72 98 10/24/21 19:09 71 98 10/24/21 19:04 75 97 10/24/21 18:59 75 98 10/24/21 18:54 68 98 10/24/21 18:49 73 98 10/24/21 18:44 73 98 10/24/21 18:39 89 97 10/24/21 18:34 72 97 10/24/21 18:29 72 97 10/24/21 18:24 68 97 10/24/21 18:19 70 96 10/24/21 18:18 71 144/90 10/24/21 18:14 82 98 10/24/21 18:09 85 97 10/24/21 17:57 72 99 10/24/21 17:52 72 98 10/24/21 17:47 76 97 10/24/21 17:42 73 98 10/24/21 17:37 79 97 10/24/21 17:32 74 98 10/24/21 17:27 69 98 10/24/21 17:22 72 97 10/24/21 17:18 71 150/88 10/24/21 17:17 74 98 10/24/21 17:12 73 98 10/24/21 17:07 84 97 10/24/21 17:02 70 99 10/24/21 16:57 78 98 10/24/21 16:52 76 97 10/24/21 16:47 77 98 10/24/21 16:43 99 10/24/21 16:42 72 97 10/24/21 16:37 81 97 10/24/21 16:32 78 98 10/24/21 16:27 74 96 10/24/21 16:22 67 98 10/24/21 16:18 71 144/79 10/24/21 16:17 75 98 10/24/21 16:12 71 97 10/24/21 16:07 68 98 10/24/21 16:02 72 97 10/24/21 15:57 66 97 10/24/21 15:42 72 98 10/24/21 15:37 73 97 10/24/21 15:32 86 98 10/24/21 15:30 98.4 F 18 10/24/21 15:27 79 95 10/24/21 15:22 73 98 10/24/21 15:19 71 171/81 10/24/21 15:17 74 98 10/24/21 15:12 71 98 10/24/21 15:07 71 97 10/24/21 15:02 75 97 10/24/21 14:57 73 98 10/24/21 14:52 73 97 10/24/21 14:47 78 97 10/24/21 14:42 81 97 10/24/21 14:40 67 125/60 10/24/21 14:37 78 98 10/24/21 14:32 81 97 10/24/21 14:28 70 162/72 10/24/21 14:27 72 97 10/24/21 14:22 79 97 10/24/21 14:17 73 97 10/24/21 14:12 74 96 10/24/21 14:07 76 97 10/24/21 14:02 78 98 10/24/21 13:57 77 97 10/24/21 13:52 76 97 10/24/21 13:47 71 97 10/24/21 13:42 74 97 10/24/21 13:37 70 97 10/24/21 13:32 68 97 10/24/21 13:27 74 98 10/24/21 13:15 79 97 10/24/21 13:10 79 99 10/24/21 13:05 66 97 10/24/21 13:00 80 96 10/24/21 12:55 75 97 10/24/21 12:50 76 98 10/24/21 12:45 82 99 10/24/21 12:40 84 97 10/24/21 12:35 72 98 10/24/21 12:30 69 98 10/24/21 12:25 77 99 10/24/21 12:20 76 98 10/24/21 12:18 68 145/81 10/24/21 12:15 71 98 10/24/21 12:10 71 98 10/24/21 12:05 77 97 10/24/21 12:03 99 10/24/21 12:00 83 98 10/24/21 11:55 77 97 10/24/21 11:50 75 98 10/24/21 11:45 75 97 10/24/21 11:40 65 96 10/24/21 11:35 63 98 10/24/21 11:33 60 118/75 10/24/21 11:30 78 98 10/24/21 11:18 60 124/67 10/24/21 11:17 66 95 10/24/21 11:12 63 97 10/24/21 11:07 62 97 10/24/21 11:02 72 93 10/24/21 11:00 65 93 10/24/21 10:57 59 L 98 10/24/21 10:55 65 93 10/24/21 10:52 63 93 10/24/21 10:48 68 93 10/24/21 10:47 58 L 98 10/24/21 10:42 60 96 10/24/21 10:41 66 94 10/24/21 10:37 65 96 10/24/21 10:35 65 94 10/24/21 10:32 62 97 10/24/21 10:30 64 93 10/24/21 10:27 67 93 10/24/21 10:23 67 94 10/24/21 10:22 63 96 10/24/21 10:18 67 132/78 10/24/21 10:17 69 91 10/24/21 10:16 67 92 10/24/21 10:12 63 96 10/24/21 10:10 75 94 10/24/21 10:07 71 96 10/24/21 10:02 68 97 10/24/21 09:57 85 97 10/24/21 09:52 70 98 10/24/21 09:47 70 98 10/24/21 09:42 78 98 10/24/21 09:37 77 98 10/24/21 09:32 78 97 10/24/21 09:27 83 97 10/24/21 09:22 72 96 10/24/21 09:18 72 137/77 10/24/21 08:46 78 97 10/24/21 08:41 76 98 10/24/21 08:36 75 98 10/24/21 08:31 76 143/86 96 10/24/21 08:26 76 97 Intake and Output 10/24/21 10/25/21 10/25/21 22:59 06:59 14:59 Intake Total 480 120 Output Total 1300 1100 Balance -820 -980 Intake: Oral 480 Intake, Free Water 120 Output: Urine 1300 1100 Indwelling Catheter 400 Void 900 1100 Other: Total, Intake Amount 120 Total, Output Amount 900 750 # Voids Void 1 1 - Labs Labs: Abnormal lab results 10/24/21 10/24/21 10/24/21 Range/Units 08:03 08:03 15:11 Hgb 9.2 L (10.1-14.3) gm/dl Hct 26.8 L (30.3-42.9) % Magnesium 3.30 H 3.40 H (1.7-2.3) mg/dL 10/24/21 Range/Units 23:45 Hgb (10.1-14.3) gm/dl Hct (30.3-42.9) % Magnesium 2.80 H (1.7-2.3) mg/dL
--- NOTE | 2021-10-25 09:05 | Discharge Summary ---
Providers - Providers Date of Admission: 10/20/21 20:04 Date of discharge: 10/25/21 Attending physician: GARRETT RIZVI MD 10/23/21 21:20 Consult to Will Call Order Clerk [CONS] Routine Reason For Exam: assistance with , SNS Primary care physician: GARRETT RIZVI MD Hospitalization Reason for admission: observation, induction of labor Delivery: Episiotomy: none Laceration: none Other procedures: none Discharge diagnosis: IUP at term delivered baby: male Pertinent studies: Pt and her have a very strong desire to go home today. Discussed the need to continue to monitor blood pressures while admitted. They continue to have a strong desire to go home stating " We have things going on at home that we need to take care of." Explained the risk of going home: having seizures and the risk of . Pt still would like to go home at this time. She denies CHANDLER, blurred vision, spots before her eyes, chest pain, shortness of breath, and upp er abdominal pain. Discussed how to take a blood pressure at home and when to call the trust operations assistant provider. She is also aware that she will need to take her Labetalol 200 mg BID and to come to the office in 1 week for a blood pressure check. Hospital course: S: Pt doing well. Ambulating, voiding, and passing flatus okay. BC: Would like BTL (consents not signed). O: VSS. Blood pressure ranges 115-131/60-70's. Fundus firm, minimal bleeding noted. H/H 9.2/26.8, asymptomatic anemia from delivery. A: 41 y.o. s/p , s/p mag infusion d/t pre eclampsia. In good condition . P: Discharge home with instructions. To schedule blood pressure check in the office in 1 wk. To schedule son's circumcision in the office in 1 wk. Condition at discharge: Good Disposition: 01 HOME / SELF CARE / HOMELESS - Discharge Diagnoses (1) (normal spontaneous vaginal delivery) Status: Acute (2) Pre-eclampsia Status: Acute Plan - Discharge Medications Prescriptions: Docusate Sodium [Colace] 100 mg PO BID PRN #60 capsule PRN Reason: Constipation Lidocain2.5%/Prilocai2.5% [Emla] 1 applic TP ONCE #1 tube Ferrous Sulfate [Feosol 325 MG tab] 325 mg PO QDAY #30 tablet labetaloL [Labetalol 200mg TAB] 200 mg PO BID #60 Ibuprofen [Motrin] 800 mg PO Q8HR PRN #20 tablet PRN Reason: Pain, Moderate (4-6) - Provider Discharge Summary Activity: routine, no sex for 6 weeks, no heavy lifting 4 weeks, no strenuous exercise Diet: routine Instructions: routine Additional instructions: [] Smoking cessation referral if applicable(refer to patient education folder for contact #) [] Refer to [facility] Booklet Call your doctor immediately for: * Fever > 100.5 * Heavy vaginal bleeding ( >1 pad per hour) * Severe persistent headache * Shortness of breath * Reddened, hot, painful area to leg or breast * Drainage or odor from incision. * Keep incision clean and dry at all times and follow doctor's instructions regarding bathing/showering - Follow up plan Follow up: GARRETT RIZVI MD [Primary Care Provider] - 7 Days (- Congratulations on the of your baby boy! - Thank you for allowing us to take care of you. - Please schedule your blood pressure check in the office in 1 week. - Please schedule your son's circumcision in the office in 1 week. - You have been prescribed EMLA cream for your son's circumcision. Please do not use this cream at home but bring it with you to your son's circumcision appointment. - Please take all medications as directed by your provider. - Please take you blood pressure at least once daily. If it is 160/110 or greater, please call the office. - If you develop a headache, blurred vision, spots before your eyes, chest pain, feeling like you can't catch your breath, pain in your upper belly, or you have these symptoms with or without a blood pressure of 160/110 or greater, you will need to call the office immediately and go the nearest ER to be seen. - Should you have any questions or concerns after discharge, please do not hesitate to call the office at [phone].)
[2021-10-25] MEDS: FERROUS SULFATE 325 MG TAB PO SCH (09:29)
[2021-10-25] MEDS: PRENATAL VIT27-FE FUMARATE-FOLIC ACID VIT TAB PO SCH (09:29)
[2021-10-25] MEDS: DOCUSATE SODIUM 100 MG CAP PO SCH (09:29)
[2021-10-25] MEDS: SERTRALINE 25 MG TAB PO SCH (09:41)
[2021-10-25 12:27] VITALS: BP 133/80
== END 2021-10-25 12:45 | disposition home or self-care (01) | DRG 806 ==
LOC: TRG 17:09 → APU 17:11 → TRG 20:04 → LD 20:04 → OB 10-24 23:37
PROVIDERS: ADMIT Student in an Organized Health Care Education/Training Program; ATTEND Student in an Organized Health Care Education/Training Program
PROC: 10E0XZZ Delivery of Products of Conception, External Approach (ICD-10-PCS; principal; 2021-10-23)
PROC: 3E0R3BZ Introduction of Anesthetic Agent into Spinal Canal, Percutaneous Approach (ICD-10-PCS; 2021-10-23)
PROC: 00HU33Z Insertion of Infusion Device into Spinal Canal, Percutaneous Approach (ICD-10-PCS; 2021-10-23)
PROC: 10H07YZ Insertion of Other Device into Products of Conception, Via Natural or Artificial Opening (ICD-10-PCS; 2021-10-23)
DX: O14.94 Unspecified pre-eclampsia, complicating childbirth (principal); O98.32 Other infections with a predominantly sexual mode of transmission complicating childbirth; Z37.0 Single live birth; O99.02 Anemia complicating childbirth; A60.00 Herpesviral infection of urogenital system, unspecified; O69.81X0 Labor and delivery complicated by cord around neck, without compression, not applicable or unspecified; O71.89 Other specified obstetric trauma; Z20.822 Contact with and (suspected) exposure to COVID-19; Z3A.37 37 weeks gestation of pregnancy
CPT/HCPCS: 36415; 80048; 81001; 82565; 82570; 83615; 83735; 84112; 84156; 84450; 84460; 84550; 85014; 85018; 85027; 86592; 86850; 86900; 86901; 88307; G0378; J3490; J2590; J3010; J3475; J7120; U0003